=== PATIENT | female | born 1935 | race Caucasian/White ===

== ENCOUNTER 2016-05-14 12:47 | Inpatient (IN) | payer MEDICARE, OTHER ==
[2016-05-14 13:37] LABS: Hematocrit 38.5 % (36.0-47.0); Mean Platelet Volume 6.6 fL (7.4-10.4); Red Blood Cell (RBC) Count 4.01 mill/uL (4.20-5.40); White Blood Cell (WBC) Count 17.6 thou/uL (4.8-10.8)
[2016-05-14 13:50] LABS: Troponin I 0.017 ng/mL (< 0.028)
[2016-05-14 14:05] LABS: Band 17 % (5-11); Metamyelocyte 2 % (0-0); Myelocyte 1 % (0-0); Neutrophil 74 % (42-75); Polychromasia SLIGHT = 2-3 cells (100X) (0-2/hpf)
[2016-05-14] MEDS ORDERED: Albuterol Sulfate 2.5 mg/0.5 ml Neb ONE (14:05)
[2016-05-14] MEDS ORDERED: Nitroglycerin 2% Ointment 1 INCH/1 GM Packet ONE (14:37)
[2016-05-14 15:06] LABS: ALT (SGPT) 16 U/L (0-55); AST (SGOT) 10 U/L (5-34); Alkaline Phosphatase 119 U/L (40-150); Anion Gap 14 mmol/L (10-20); BUN (Urea Nitrogen) 20 mg/dL (9.8-20.1); Bilirubin, Total 0.8 mg/dL (0.2-1.2); Calc. Creatinine Clearance 0 mL/min (70-130); Calcium 8.8 mg/dL (7.8-10.44); Carbon Dioxide 20 mmol/L (23-31); Chloride 107 mmol/L (98-107); Estimated GFR-MDRD 47; Globulin 5.1 g/dL (2.4-3.5); Protein, Total 8.2 g/dL (5.8-8.1)
--- NOTE | 2016-05-14 15:45 | RAD ---
PORTABLE CHEST: Date: 05/14/16 PROVIDED CLINICAL HISTORY: Dyspnea. FINDINGS: Comparison with 02/28/16. Evaluation is limited by patient body habitus. Cardiac silhouette remains enlarged. Prominence of pu lmonary vasculature is suggested. Evaluation of left lung base is suboptimal. There is no evidence f or pneumothorax. IMPRESSION: Limited study with findings suggesting congestive failure. POS: [facility]
--- NOTE | 2016-05-14 16:07 | ERRECORD ---
[facility] EMERGENCY RECORD HPI SHORTNESS OF BREATH (14:14 SROB) CHIEF COMPLAINT: Patient presents for evaluation of shortness of breath. HISTORIAN: History provided by patient. LOCATION: No localizing symptoms. QUALITY: Symptoms described as tightness, Symptoms described as wheezing, Described as similar to previous episodes. SEVERITY: Maximum severity of symptoms severe, Currently symptoms are severe. TIME COURSE: Gradual onset of symptoms, 3, days priror to arrival. ASSOCIATED WITH: Associated with cough, Associated with wheezing. RELIEVED BY: Patient's condition relieved by inhaler use. RISK FACTORS: Coronary artery disease risk factors. ROS (14:15 SROB) CONSTITUTIONAL: Negative constitutional review of systems. EYES: Negative eye review of systems. ENT: Negative ears, nose, throat review of systems. CARDIOVASCULAR: Negative cardiovascular review of systems. RESPIRATORY: Historian reports shortness of breath, reports wheezing. GI: Negative gastrointestinal review of systems. GENITOURINARY FEMALE: Negative genitourinary review of systems. NEUROLOGIC: Negative neurologic review of systems. PSYCHIATRIC: Negative psychiatric review of systems. PAST MEDICAL HISTORY (13:36 LHAL) MEDICAL HISTORY: Flu vaccine up to date, Past medical history includes genitourinary history, Past medical history includes neurological disease, "SLIGHT DEMENTIA", Past medical history includes history of obesity, Past medical history includes pulmonary disease, Notes: OSTEOPOROSIS, OVERACTIVE BLADDER, GERD, history of hyperlipidemia, Past medical history includes history of hypertension. FEMALE SURGICAL HISTORY: Surgical history of hysterectomy, Surgical history of hysterectomy. PSYCHIATRIC HISTORY: Notes: DEMENTIA, Notes: DEMENTIA. SOCIAL HISTORY: Patient denies alcohol use, Patient denies drug use, Patient has no smoking history, Patient denies alcohol use, Patient denies drug use, Patient has no smoking history. KNOWN ALLERGIES No Known Allergies (Unconfirmed) No Known Drug Allergies CURRENT MEDICATIONS Miralax: POWDER IN PACKET (EA) : Strength - 17 gram : ORAL Patient Dose: 17 g Oral once a day. (14:16 LHAL) UTI-Stat: LIQUID (ML) : Strength - 3,875 mg/30 mL : ORAL &a-1R&a+25V*p+0X*[id number]*c152B*c15G*c2P*p-0X&a-25V&a+1RName: Leida Collins : F80 MedRec: [id number] AcctNum: [id number] Prepared: SatMay 14, 2016 16:11 by Interface Page 1 of 4 pMD [facility] EMERGENCY RECORD Patient Dose: ONE radha Oral once a day. (14:17 LHAL) Colace: CAPSULE : Strength - 100 mg : ORAL Patient Dose: 100 mg Oral 2 times a day. (14:18 LHAL) naproxen: TABLET : Strength - 500 mg : ORAL Patient Dose: 500 mg Oral 2 times a day. (14:18 LHAL) ranitidine HCl: CAPSULE : Strength - 150 mg : ORAL Patient Dose: 150 mg Oral 2 times a day. (14:19 LHAL) guaiFENesin: LIQUID (ML) : Strength - 100 mg/5 mL : ORAL Patient Dose: 5 mL Oral every 6 hours PRN.Last Taken: 05/14/16. (14:20 LHAL) loperamide: CAPSULE : Strength - 2 mg : ORAL Patient Dose: 2 mg Oral once a day. (14:20 LHAL) Claritin: TABLET : Strength - 10 mg : ORAL Patient Dose: 10 mg Oral once a day. (14:21 LHAL) Milk of Magnesia: SUSPENSION, ORAL (FINAL DOSE FORM) : Strength - 400 mg/5 mL : ORAL Patient Dose: 30 mL Oral As Needed. (14:21 LHAL) Afrin (oxymetazoline): SPRAY, NON-AEROSOL (ML) : Strength - 0.05 % : NASAL Patient Dose: 1 spray(s) Nares Both As Needed. (14:22 LHAL) Tylenol: TABLET : Strength - 325 mg : ORAL Patient Dose: 1-2 tab(s) Oral every 6 hours PRN. (14:23 LHAL) VITAL SIGNS VITAL SIGNS: BP: 165/75 (Sitting), Pulse: 117 (Regular), Resp: 28 (Moderate Distress), Pain: 0, O2 sat: 88 on Room Air, Time: 05/14/2016 13:01. (13:01 LHAL) Temp: 97.5 (Tympanic), Time: 05/14/2016 13:15. (13:15 LHAL) BP: 103/50 (Sitting), Pulse: 114 (Regular), Resp: 23 (Mild Distress), Pain: 0, O2 sat: 93 on 3L Oxygen, Time: 05/14/2016 12:45. (12:45 LHAL) BP: 117/78 (Sitting), Pulse: 115 (Regular), Resp: 24 (Non-Labored), Pain: 0, O2 sat: 93 on 3L Oxygen, Time: 05/14/2016 14:30. (14:30 LHAL) BP: 99/57 (Sitting), Pulse: 115 (Regular), Resp: 18 (Non-Labored), Pain: 0, O2 sat: 93 on 3L Oxygen, Time: 05/14/2016 15:01. (15:01 LHAL) BP: 97/54 (Sitting), Pulse: 114 (Regular), Resp: 18 (Non-Labored), Pain: 0, O2 sat: 94 on 3L Oxygen, Time: 05/14/2016 15:31. (15:31 LHAL) BP: 98/64, Pulse: 115, Resp: 20, Temp: 87.0, Pain: 0, O2 sat: 94 on 3L, Time: 05/14/2016 15:49. (15:49 LHAL) PHYSICAL EXAM (14:15 SROB) CONSTITUTIONAL: Vital Signs Reviewed, Patient afebrile, Pulse, tachycardic, Blood pressure, &a-1R&a+25V*p+0X*[id number]*c152B*c15G*c2P*p-0X&a-25V&a+1RName: Leida Collins : 6 F80 MedRec: [id number] AcctNum: [id number] Prepared: SatMay 14, 2016 16:11 by Interface Page 2 of 4 pMD [facility] EMERGENCY RECORD hypertensive, Respiratory rate, increased, Abnormal Pulse Oximetry, 88 on room air. HEAD: Head exam normal. EYES: Eye exam normal. ENT: ENT exam normal. NECK: Neck exam normal. RESPIRATORY CHEST: Wheezing present, Rales present, to bilateral lower lobes, Breath sounds diminished. ABDOMEN FEMALE: Abdominal exam normal. BACK: Back exam normal. UPPER EXTREMITY: Upper extremity exam normal. LOWER EXTREMITY: Lower extremity exam normal, Reese's negative. NEURO: Neuro exam normal. SKIN: Skin exam normal. PSYCHIATRIC: Psychiatric exam normal. EKG INTERPRETATION (14:16 SROB) 12 LEAD EKG INTERPRETATION: 12 lead EKG interpreted by Emergency Department Physician at time of study, 12 lead EKG shows, sinus tachycardia, Rate (beats per minute): 106, T waves, non-specific t wave change, Clinical impression:, No ischemic changes. RADIOLOGYINTERPRETATION (14:19 SROB) CHEST: Films of the chest show, moderate congestive heart failure. MEDICATION ADMINISTRATION SUMMARY Drug Name: DuoNeb, Dose Ordered: 3 mL, Route: Intranasal, Status: Canceled, Time: 13:16 05/14/2016, Drug Name: Nitrol, Dose Ordered: 1 inch, Route: Transdermal, Status: Given, Time: 14:38 05/14/2016, Drug Name: Proventil solution for nebulization, Dose Ordered: 2.5 mg, Route: Nebulize, Status: Given, Time: 14:03 05/14/2016, Drug Name: DuoNeb, Dose Ordered: 3 mg, Route: Nebulize, Status: Given, Time: 13:17 05/14/2016, Detailed record available in Medication Service section. DOCTOR NOTES (15:58 SROB) RE-EVALUATION: The patient's condition has improved, Wheezing much better but still has rales and is short fo breath. VIK@ 94. PATIENT STATUS: Patient has improved since arrival to emergency department. D/W: Discussed this case with Dr. Olivares, the primary care physician, Will admit. PATIENT PLAN: The patient will be admitted to the hospital. DATA REVIEWED: Lab data reviewed, Xray data reviewed, Reviewed &a-1R&a+25V*p+0X*[id number]*c152B*c15G*c2P*p-0X&a-25V&a+1RName: Leida Collins : F80 MedRec: [id number] AcctNum: [id number] Prepared: SatMay 14, 2016 16:11 by Interface Page 3 of 4 pMD [facility] EMERGENCY RECORD EKG, Discussed with consultants. PROBLEM LIST No recorded problems DIAGNOSIS (15:58 SROB) FINAL: PRIMARY: ACUTE BRONCHOSPASM, ADDITIONAL: CHF. PRESCRIPTION No recorded prescriptions DISPOSITION PATIENT: Disposition Type: Admit, Disposition: [facility], Disposition Transport: Stretcher, Condition: Fair. (15:58 SROB) Patient left the department. (16:05 [facility]) Forrest: LHAL=ROSEANN Gómez, Dulce SROB=MD Cristhian, Thierry &a-1R&a+25V*p+0X*d4019R*c152B*c15G*c2P*p-0X&a-25V&a+1RName: Leida Collins : F80 MedRec: [id number] AcctNum: [id number] Prepared: [facility] May 14, 2016 16:11 by Interface Page 4 of 4 pMD MTDD
--- NOTE | 2016-05-14 16:13 | PICIS ---
[facility] EMERGENCY RECORD TRIAGE (SatMay 14, 2016 13:03 LHAL) TRIAGE NOTES: SOB X FEW DAYS WITH COUGH, CONGESTION, NO FEVER. (SatMay 14, 2016 13:03 LHAL) PATIENT: NAME: Leiad Collins, AGE: 80, GENDER: female, : Sat1935, TIME OF GREET: SatMay 14, 2016 12:48, PREFERRED LANGUAGE: Somali, ETHNICITY: Not or , ECODE BILLING MAP: [facility], SSN: [id number], Zip Code: [address], KG WEIGHT: 97.52, PHONE: , , , PERSON ID: [id number], PCP: Bill KELSEY LUKE. (SatMay 14, 2016 13:03 LHAL) COMPLAINT: COUGH,CONGESTION. (SatMay 14, 2016 13:03 LHAL) ADMISSION: URGENCY: 2 Emergent, ADMISSION SOURCE: [facility], AMBULANCE: [facility], TRANSPORT: AMBULANCE - [facility], BED: ER -02. (SatMay 14, 2016 13:03 LHAL) ASSESSMENT: Assessment: RASH X ONE MONTH, POSS SCABIES, Symptoms began BEFORE THANKSGIVING. (13:36 LHAL) PAIN: No complaint of pain, No aggravating factors, No relieving factors. (13:36 LHAL) IMMUNIZATIONS: Flu vaccine not up to date, Tetanus immunization up to date, Pneumococcal vaccine not up to date, Notes: USING RUBBING ALCOHOL. (13:36 LHAL) SIRS SCORING: Heart Rate 55-109 (0), Temp range 96.8-101.1 (0), respiratory rate 12-24 (0), Mental Status altered: no (0), Infection or Suspected Infection: No. (13:36 LHAL) TRIAGE SCREENING: Patient denies suicidal ideation, Patient denies presence of domestic violence. (13:36 LHAL) LMP: LMP: Menopause. (13:36 LHAL) PROVIDERS: TRIAGE NURSE: Dulce Gómez RN. (SatMay 14, 2016 13:03 LHAL) VITAL SIGNS: BP 165/75, (Sitting), Pulse 117, (Regular), Resp 28, (Moderate Distress), Pain 0, O2 Sat 88, on Room Air, Time 05/14/2016 13:01. (13:01 LHAL) PREVIOUS VISIT ALLERGIES: No Known Drug Allergies. (SatMay 14, 2016 13:03 LHAL) No Known Drug Allergies. (13:36 LHAL) KNOWN ALLERGIES No Known Allergies (Unconfirmed) No Known Drug Allergies CURRENT MEDICATIONS Miralax: POWDER IN PACKET (EA) : Strength - 17 gram : ORAL Patient Dose: 17 g Oral once a day. (14:16 LHAL) UTI-Stat: LIQUID (ML) : Strength - 3,875 mg/30 mL : ORAL Patient Dose: ONE radha Oral once a day. (14:17 LHAL) Colace: CAPSULE : Strength - 100 mg : ORAL Patient Dose: 100 mg Oral 2 times a day. (14:18 LHAL) &a-1R&a+25V*p+0X*t7294F*c152B*c15G*c2P*p-0X&a-25V&a+1RName: Leida Collins : F80 MedRec: [id number] AcctNum: [id number] Prepared: SatMay 14, 2016 16:17 by Interface Page 1 of 12 D [facility] EMERGENCY RECORD naproxen: TABLET : Strength - 500 mg : ORAL Patient Dose: 500 mg Oral 2 times a day. (14:18 LHAL) ranitidine HCl: CAPSULE : Strength - 150 mg : ORAL Patient Dose: 150 mg Oral 2 times a day. (14:19 LHAL) guaiFENesin: LIQUID (ML) : Strength - 100 mg/5 mL : ORAL Patient Dose: 5 mL Oral every 6 hours PRN.Last Taken: 05/14/16. (14:20 LHAL) loperamide: CAPSULE : Strength - 2 mg : ORAL Patient Dose: 2 mg Oral once a day. (14:20 LHAL) Claritin: TABLET : Strength - 10 mg : ORAL Patient Dose: 10 mg Oral once a day. (14:21 LHAL) Milk of Magnesia: SUSPENSION, ORAL (FINAL DOSE FORM) : Strength - 400 mg/5 mL : ORAL Patient Dose: 30 mL Oral As Needed. (14:21 LHAL) Afrin (oxymetazoline): SPRAY, NON-AEROSOL (ML) : Strength - 0.05 % : NASAL Patient Dose: 1 spray(s) Nares Both As Needed. (14:22 LHAL) Tylenol: TABLET : Strength - 325 mg : ORAL Patient Dose: 1-2 tab(s) Oral every 6 hours PRN. (14:23 LHAL) VITAL SIGNS VITAL SIGNS: BP: 165/75 (Sitting), Pulse: 117 (Regular), Resp: 28 (Moderate Distress), Pain: 0, O2 sat: 88 on Room Air, Time: 05/14/2016 13:01. (13:01 LHAL) Temp: 97.5 (Tympanic), Time: 05/14/2016 13:15. (13:15 LHAL) BP: 103/50 (Sitting), Pulse: 114 (Regular), Resp: 23 (Mild Distress), Pain: 0, O2 sat: 93 on 3L Oxygen, Time: 05/14/2016 12:45. (12:45 LHAL) BP: 117/78 (Sitting), Pulse: 115 (Regular), Resp: 24 (Non-Labored), Pain: 0, O2 sat: 93 on 3L Oxygen, Time: 05/14/2016 14:30. (14:30 LHAL) BP: 99/57 (Sitting), Pulse: 115 (Regular), Resp: 18 (Non-Labored), Pain: 0, O2 sat: 93 on 3L Oxygen, Time: 05/14/2016 15:01. (15:01 LHAL) BP: 97/54 (Sitting), Pulse: 114 (Regular), Resp: 18 (Non-Labored), Pain: 0, O2 sat: 94 on 3L Oxygen, Time: 05/14/2016 15:31. (15:31 LHAL) BP: 98/64, Pulse: 115, Resp: 20, Temp: 87.0, Pain: 0, O2 sat: 94 on 3L, Time: 05/14/2016 15:49. (15:49 LHAL) NURSING ASSESSMENT: FALL RISK (15:43 LHAL) FALL RISK: Fall risk assessment findings include: no history of falls (0), No bed rest greater than 2 days (0), No use of level of consciousness altering agents with mentation or cognitive changes (0), No change in blood pressure (0), No sensory deficits (0), Impaired mobility (3), No neurologic diagnosis (0), No elimination problems (0), No confusion (0), Total score 3. &a-1R&a+25V*p+0X*t2430V*c152B*c15G*c2P*p-0X&a-25V&a+1RName: Leida Collins : F80 MedRec: [id number] AcctNum: [id number] Prepared: SatMay 14, 2016 16:17 by Interface Page 2 of 12 pMD [facility] EMERGENCY RECORD NURSING ASSESSMENT: RESPIRATORY /CHEST CONSTITUTIONAL: Patient arrives, via stretcher, via [facility], Unsteady gait, Lift to cart, History obtained from, Emergency Medical [facility], Patient appears, anxious, in respiratory distress, obese, Patient cooperative, Patient alert, Oriented to person, place and time, Skin warm, Skin dry, Skin normal in color, Mucous membranes pink, Mucous membranes moist, Patient is well-groomed, Patient complains of SOB, COUGH X FEW DAYS. (13:03 LHAL) PAIN: No sudden onset of pain, Patient rates pain as 0 out of 10. (13:03 LHAL) RESPIRATORY/CHEST: Lungs auscultated, Breath sounds diminished, to bilateral lower lobes, Respiratory assessment findings include respiratory effort, tachypneic, dyspneic, Respirations regular, Converses, in short phrases, Neck and chest exam findings include trachea midline, Chest expansion equal, Chest movement symmetrical, Associated with cough, non-productive, no associated fever, no associated fume exposure. (13:03 LHAL) ENT: no associated fever, no associated headache, no associated decrease in oral intake. (13:03 LHAL) NOTES: Notes: DENIES CP, NO SWELLING TO LEGS. (14:45 LHAL) SAFETY: Side rails up, Cart/Stretcher in lowest position, Family at bedside, Call light within reach, Hospital ID band on. (13:03 LHAL) NURSING ASSESSMENT: SKIN (15:50 LHAL) SKIN: Skin assessment findings include skin warm, Skin dry, Skin normal in color, Notes: SLIGHT BROWNISH DISCOLORATION TO BILAT LOWER LEGS, NO EDEMA, SLIGHT SCRAPE RIGHT LOWER LEG, MINOR SCRAPE TO OUTER RIGHT LABIA, POSSIBLE FROM DIAPER RUBBING, NO BLEEDING. ADVANCED DIRECTIVES (15:40 LHAL) ADVANCED DIRECTIVE: FRANKO LARA, Patient has a power of insurance attorney, Power of insurance attorney document scanned into chart., Name: FRANKO LARA, Effective Date of advance directives is: 06-28-09. NURSING PROCEDURE: ADMISSION (15:35 LHAL) ADMISSION: Patient admitted to a telemetry unit, room number 145, Report called to, ROSEANN CALLAHAN, Provided opportunity to answer questions, Admission orders received and completed, Bed assigned at 1527, Report called at 1535, Patient Admited at. 1545, Acuity level non-urgent, Transported via cart/stretcher, Accompanied by registered nurse, Transported with oxygen. BELONGINGS: Belongings and valuables with patient upon arrival to the Emergency Department include:. &a-1R&a+25V*p+0X*j5597Z*c152B*c15G*c2P*p-0X&a-25V&a+1RName: Leida Collins : F80 MedRec: [id number] AcctNum: [id number] Prepared: SatMay 14, 2016 16:17 by Interface Page 3 of 12 [facility] EMERGENCY RECORD NURSING PROCEDURE: BEDSIDE RADIOLOGY (13:41 LHAL) PATIENT IDENTIFIER: Patient actively involved in identification process, Patient's identity verified by patient stating name, Patient's identity verified by patient stating date, Patient's identity verified by hospital ID bracelet, Patient's identity verified by family member. BEDSIDE RADIOLOGY: Portable chest x-ray performed. SAFETY: Side rails up, Cart/Stretcher in lowest position, Family at bedside, Call light within reach, Hospital ID band on. NURSING PROCEDURE: INSTRUMENT TECH (13:03 LHAL) PATIENT IDENTIFIER: Patient actively involved in identification process, Patient's identity verified by patient stating name, Patient's identity verified by patient stating date, Patient's identity verified by hospital ID bracelet. INSTRUMENT TECH: Cardiac monitoring indicated for SOB, TACHYCARDIA, Patient placed on statement services representative, Heart rate: 117, showing sinus tachycardia, with no ST segment changes, Strip posted on chart, Patient placed on non-invasive blood pressure monitor, with disposable blood pressure cuff applied, Patient placed on continuous pulse oximetry, Adult/pediatric oxisensor applied, Oxygen saturation 88%. FOLLOW-UP: After procedure, alarms set and on, After procedure, patient tolerating monitoring. SAFETY: Side rails up, Cart/Stretcher in lowest position, Call light within reach, Hospital ID band on. NURSING PROCEDURE: IV PATIENT IDENITIFIER: Patient actively involved in identification process, Patient's identity verified by patient stating name, Patient's identity verified by patient stating date, Patient's identity verified by hospital ID bracelet. (13:10 LHAL) IV SITE 1: IV therapy indicated for medication administration, IV established, to the left forearm, using a 20 gauge catheter, in one attempt, IV site prepped with CHLOROPREP, Saline lock established, Flushed with normal saline (mls): 10CC, Labs drawn at time of placement, labeled in the presence of the patient and sent to lab, Blood cultures drawn at time of placement, labeled in the presence of the patient and sent to lab, Notes: FIRST SET BC DRAWN. (13:10 LHAL) FOLLOW-UP SITE 1: Notes: CONTINUED UPON ADMISSION. (15:39 LHAL) SAFETY: Side rails up, Cart/Stretcher in lowest position, Call light within reach, Hospital ID band on. (13:10 LHAL) NURSING PROCEDURE: NURSE NOTES NURSES NOTES: Patient is improving, Patient in no apparent distress, Patient resting quietly, Patient is awaiting results, Notes: FEELING BETTER, DECREASED COUGH, NON LABORED RESP, A&OX3, SKIN PINK W/D. (14:52 LHAL) &a-1R&a+25V*p+0X*n3223T*c152B*c15G*c2P*p-0X&a-25V&a+1RName: Leida Collins : F80 MedRec: [id number] AcctNum: [id number] Prepared: SatMay 14, 2016 16:17 by Interface Page 4 of 12 pMD [facility] EMERGENCY RECORD Patient re-evaluated by physician. (15:13 LHAL) Notes: CONSULT DR KELSEY. (15:17 LHAL) Notes: PT WILL BE AD[facility]ITT[facility]. (15:22 LHAL) Notes: ADMITTED, STABLE, NON LABORED RESP, DYSPNEIC AT TIMES, WHEEZING, GOOD AIR MOVEMENT, NO PAIN. (15:49 LHAL) VITAL SIGNS: BP: 98, / 64, Pulse: 115, Resp: 20, Temp: 87.0, Pain: 0, O2 sat: 94, on: 3L. (15:49 LHAL) NURSING PROCEDURE: OXYGEN THERAPY (13:03 LHAL) PATIENT IDENTIFIER: Patient actively involved in identification process, Patient's identity verified by patient stating name, Patient's identity verified by patient stating date, Patient's identity verified by hospital ID bracelet. OXYGEN THERAPY: Oxygen therapy indicated for wheezing, Oxygen therapy indicated for desaturation, Oxygen therapy indicated for respiratory distress, Oxygen saturation 88%, by adult/pediatric oxisensor, multiple pulse oximetry reading, 3L oxygen given, via nasal cannula. FOLLOW-UP: After procedure, oxygen saturation 96%. SAFETY: Side rails up, Cart/Stretcher in lowest position, Call light within reach, Hospital ID band on. NURSING PROCEDURE: RESPIRATORY INTERVENTIONS PATIENT IDENTIFIER: Patient actively involved in identification process, Patient's identity verified by patient stating name, Patient's identity verified by patient stating date, Patient's identity verified by hospital ID bracelet. (13:16 LHAL) Patient actively involved in identification process, Patient's identity verified by patient stating name, Patient's identity verified by patient stating date, Patient's identity verified by hospital ID bracelet, Patient's identity verified by family member. (13:16 LHAL) RESPIRATORY INTERVENTIONS: Respiratory interventions indicated for desaturation, Respiratory interventions indicated for respiratory distress, Respiratory interventions indicated for wheezing, Pre-intervention breath sounds diminished, to bilateral lower lobes, Pre-intervention breath sounds with wheezing, to bilateral upper lobes, Pre-intervention oxygen saturation 95%, by adult/pediatric oxisensor, multiple pulse oximetry reading, Patient given ALBUTEROL with ATROVENT, Single dose nebulizer, Dose: UNIT DOSE. (13:16 LHAL) Respiratory interventions indicated for desaturation, Respiratory interventions indicated for wheezing, Pre-intervention breath sounds with wheezing, Pre-intervention oxygen saturation 95%, Patient given ALBUTEROL, 2, Single dose nebulizer. (13:16 LHAL) FOLLOW-UP: After procedure, oxygen saturation 94%, on 3L, After procedure, breath sounds with rhonchi, After procedure, breath sounds with wheezing, Notes: INCREASED BS, SCATTERED WHEEZES, RHONCHI. (14:51 LHAL) SAFETY: Side rails up, Cart/Stretcher in lowest position, Call &a-1R&a+25V*p+0X*c4255I*c152B*c15G*c2P*p-0X&a-25V&a+1RName: Leida Collins : F80 MedRec: [id number] AcctNum: [id number] Prepared: SatMay 14, 2016 16:17 by Interface Page 5 of 12 pMD [facility] EMERGENCY RECORD light within reach, Hospital ID band on. (13:16 LHAL) ORDER DETAILS Order Name: B type Natriuretic Peptide, Status: Active, Time: 14:20 05/14/2016, User: JELLY, - Ordered for: MD Morrow Sam, - Entered by: MD Morrow Sam - SatMay 14, 2016 14:20, - Quantity: 1, Order Name: Cardiac Profile w/CKMB & Troponin - I, Status: Active, Time: 13:15 05/14/2016, User: JELLY, - Ordered for: MD Morrow Sam, - Entered by: MD Morrow Sam - SatMay 14, 2016 13:15, - Quantity: 1, Order Name: CBC with Differential, Status: Active, Time: 13:15 05/14/2016, User: JELLY, - Ordered for: MD Morrow Sam, - Entered by: MD Morrow Sam - SatMay 14, 2016 13:15, - Quantity: 1, Order Name: Comprehensive Metabolic Panel, Status: Active, Time: 13:15 05/14/2016, User: JELLY, - Ordered for: MD Morrow Sam, - Entered by: MD Morrow Sam - [facility] May 14, 2016 13:15, - Quantity: 1, Order Name: Culture, Blood, Status: Active, Time: 13:20 05/14/2016, User: LHCATHY, - Ordered for: MD Morrow Sam, - Entered by: ROSEANN Gómez, [facility] May 14, 2016 13:20, - Quantity: 1, Order Name: EKG 12 Lead in Emergency Room, Status: Active, Time: 13:15 05/14/2016, User: JELLY, - Ordered for: MD Morrow Sam, - Entered by: MD Morrow Sam - [facility] May 14, 2016 13:15, - Quantity: 1, Order Name: ERRT * Smal Vol Neb Initial Trmt, Status: Active, Time: 13:15 05/14/2016, User: JELLY, - Ordered for: MD Morrow Sam, - Entered by: MD Morrow Sam - [facility] May 14, 2016 13:15, - Quantity: 1, Order Name: ERRT Oxygen Usage ER, Status: Active, Time: 13:41 05/14/2016, User: AWILDA, - Ordered for: MD Morrow Sam, - Entered by: ROSEANN Gómez, [facility] May 14, 2016 13:41, - Quantity: 1, Order Name: SALINE LOCK, Status: Done, Time: 13:20 05/14/2016, User: AWILDA, - Ordered for: MD Morrow Sam, - Entered by: MD Morrow Sam - [facility] May 14, 2016 13:15, - Quantity: 1, Order Name: XR Chest 1 View Portable, Status: Active, Time: 13:15 05/14/2016, User: JELLY, &a-1R&a+25V*p+0X*x0754T*c152B*c15G*c2P*p-0X&a-25V&a+1RName: Leida Collins : F80 MedRec: [id number] AcctNum: [id number] Prepared: SatMay 14, 2016 16:17 by Interface Page 6 of 12 D [facility] EMERGENCY RECORD - Ordered for: MD Morrow Sam, - Entered by: MD Morrow Sam - SatMay 14, 2016 13:15, - Quantity: 1. MEDICATION ADMINISTRATION SUMMARY Drug Name: DuoNeb, Dose Ordered: 3 mL, Route: Intranasal, Status: Canceled, Time: 13:16 05/14/2016, Drug Name: Nitrol, Dose Ordered: 1 inch, Route: Transdermal, Status: Given, Time: 14:38 05/14/2016, Drug Name: Proventil solution for nebulization, Dose Ordered: 2.5 mg, Route: Nebulize, Status: Given, Time: 14:03 05/14/2016, Drug Name: DuoNeb, Dose Ordered: 3 mg, Route: Nebulize, Status: Given, Time: 13:17 05/14/2016, Detailed record available in Medication Service section. MEDICATION SERVICE DuoNeb: Order: DuoNeb (ipratropium bromide/albuterol sulfate) - Dose: 3 mg : Nebulize Schedule: Now Ordered by: Thierry Morrow MD Entered by: Dulce Gómez RN SatMay 14, 2016 13:17 Documented as given by: Dulce Gómez RN SatMay 14, 2016 13:17 Patient, Medication, Dose, Route and Time verified prior to administration. Amount given: 3 MG, Site: Medication administered via Hand-held nebulizer, With oxygen, Correct patient, time, route, dose and medication confirmed prior to administration, Patient advised of actions and side-effects prior to administration, Allergies confirmed and medications reviewed prior to administration, Administered by Mima GÓMEZ RN, Patient in position of comfort, Side rails up, Cart in lowest position, Family at bedside. : Follow Up : No signs or symptoms of allergic reaction noted, Decreased respiratory rate, Decreased respiratory effort, Breath sounds improved. (13:45 LHAL) Nitrol: Order: Nitrol (nitroglycerin) - Dose: 1 inch : Transdermal Schedule: Now Ordered by: Thierry Morrow MD Entered by: Thierry Morrow MD SatMay 14, 2016 14:31 Documented as given by: Dulce Gómez RN SatMay 14, 2016 14:38 Patient, Medication, Dose, Route and Time verified prior to administration. Amount given: ONE INCH, Skin cleansed prior to administration, Shaving required prior to administration, Correct patient, time, route, dose and medication confirmed prior to administration, Patient advised of actions and side-effects prior to administration, Allergies confirmed and medications reviewed prior to administration, Administered by Mima GÓMEZ RN, Advised not to ambulate without assistance, Patient in position of comfort, Side rails up, Cart in lowest position. &a-1R&a+25V*p+0X*y3406C*c152B*c15G*c2P*p-0X&a-25V&a+1RName: Leida Collins : F80 MedRec: [id number] AcctNum: [id number] Prepared: SatMay 14, 2016 16:17 by Interface Page 7 of 12 pMD [facility] EMERGENCY RECORD : Follow Up : No signs or symptoms of allergic reaction noted, Decreased respiratory effort. (15:40 LHAL) Proventil solution for nebulization: Order: Proventil solution for nebulization (albuterol sulfate) - Dose: 2.5 mg : Nebulize Schedule: Now Ordered by: Thierry Morrow MD Entered by: Thierry Morrow MD SatMay 14, 2016 14:00 Documented as given by: Dulce Gómez RN SatMay 14, 2016 14:03 Patient, Medication, Dose, Route and Time verified prior to administration. Amount given: 2.5 MG, Site: Medication administered via Hand-held nebulizer, With oxygen, Correct patient, time, route, dose and medication confirmed prior to administration, Patient advised of actions and side-effects prior to administration, Allergies confirmed and medications reviewed prior to administration, Administered by Mima GÓMEZ RN, Patient in position of comfort, Side rails up, Cart in lowest position, Family at bedside. : Follow Up : No signs or symptoms of allergic reaction noted, Decreased respiratory rate, Decreased respiratory effort, Breath sounds improved. (14:50 LHAL) (CANCELED) DuoNeb: Order: DuoNeb (ipratropium bromide/albuterol sulfate) - Dose: 3 mL : Intranasal Schedule: Now Ordered by: Thierry Morrow MD Entered by: Thierry Morrow MD SatMay 14, 2016 13:13 Canceled by: Dulce Gómez RN. SatMay 14, 2016 13:16 Cancel reason: WRONG ORDER. HPI SHORTNESS OF BREATH (14:14 SROB) CHIEF COMPLAINT: Patient presents for evaluation of shortness of breath. HISTORIAN: History provided by patient. LOCATION: No localizing symptoms. QUALITY: Symptoms described as tightness, Symptoms described as wheezing, Described as similar to previous episodes. SEVERITY: Maximum severity of symptoms severe, Currently symptoms are severe. TIME COURSE: Gradual onset of symptoms, 3, days priror to arrival. ASSOCIATED WITH: Associated with cough, Associated with wheezing. RELIEVED BY: Patient's condition relieved by inhaler use. RISK FACTORS: Coronary artery disease risk factors. ROS (14:15 SROB) CONSTITUTIONAL: Negative constitutional review of systems. EYES: Negative eye review of systems. ENT: Negative ears, nose, throat review of systems. CARDIOVASCULAR: Negative cardiovascular review of systems. RESPIRATORY: Historian reports shortness of breath, reports wheezing. GI: Negative gastrointestinal review of systems. &a-1R&a+25V*p+0X*q3006N*c152B*c15G*c2P*p-0X&a-25V&a+1RName: Leida Collins : F80 MedRec: [id number] AcctNum: [id number] Prepared: SatMay 14, 2016 16:17 by Interface Page 8 of 12 pMD [facility] EMERGENCY RECORD GENITOURINARY FEMALE: Negative genitourinary review of systems. NEUROLOGIC: Negative neurologic review of systems. PSYCHIATRIC: Negative psychiatric review of systems. PAST MEDICAL HISTORY (13:36 LHAL) MEDICAL HISTORY: Flu vaccine up to date, Past medical history includes genitourinary history, Past medical history includes neurological disease, "SLIGHT DEMENTIA", Past medical history includes history of obesity, Past medical history includes pulmonary disease, Notes: OSTEOPOROSIS, OVERACTIVE BLADDER, GERD, history of hyperlipidemia, Past medical history includes history of hypertension. FEMALE SURGICAL HISTORY: Surgical history of hysterectomy, Surgical history of hysterectomy. PSYCHIATRIC HISTORY: Notes: DEMENTIA, Notes: DEMENTIA. SOCIAL HISTORY: Patient denies alcohol use, Patient denies drug use, Patient has no smoking history, Patient denies alcohol use, Patient denies drug use, Patient has no smoking history. PHYSICAL EXAM (14:15 SROB) CONSTITUTIONAL: Vital Signs Reviewed, Patient afebrile, Pulse, tachycardic, Blood pressure, hypertensive, Respiratory rate, increased, Abnormal Pulse Oximetry, 88 on room air. HEAD: Head exam normal. EYES: Eye exam normal. ENT: ENT exam normal. NECK: Neck exam normal. RESPIRATORY CHEST: Wheezing present, Rales present, to bilateral lower lobes, Breath sounds diminished. ABDOMEN FEMALE: Abdominal exam normal. BACK: Back exam normal. UPPER EXTREMITY: Upper extremity exam normal. LOWER EXTREMITY: Lower extremity exam normal, Reese's negative. NEURO: Neuro exam normal. SKIN: Skin exam normal. PSYCHIATRIC: Psychiatric exam normal. LAB INTERPRETATION (15:28 SROB) INTERPRETATION: I reviewed the lab results, All labs normal except as noted below, Glucose high, BNP minimally high, and WBC high. EVENTS TRANSFER: Triage to Emergency Emergency Room -02. (SatMay 14, 2016 13:03 LHAL) Removed from Emergency Emergency Room -02. (16:05 LHAL) RADIOLOGYINTERPRETATION (14:19 SROB) &a-1R&a+25V*p+0X*h9580M*c152B*c15G*c2P*p-0X&a-25V&a+1RName: Leida Collins : F80 MedRec: [id number] AcctNum: [id number] Prepared: SatMay 14, 2016 16:17 by Interface Page 9 of 12 pMD [facility] EMERGENCY RECORD CHEST: Films of the chest show, moderate congestive heart failure. EKG INTERPRETATION (14:16 SROB) 12 LEAD EKG INTERPRETATION: 12 lead EKG interpreted by Emergency Department Physician at time of study, 12 lead EKG shows, sinus tachycardia, Rate (beats per minute): 106, T waves, non-specific t wave change, Clinical impression:, No ischemic changes. DOCTOR NOTES (15:58 SROB) RE-EVALUATION: The patient's condition has improved, Wheezing much better but still has rales and is short fo breath. VIK@ 94. PATIENT STATUS: Patient has improved since arrival to emergency department. D/W: Discussed this case with Dr. Kelsey, the primary care physician, Will admit. PATIENT PLAN: The patient will be admitted to the hospital. DATA REVIEWED: Lab data reviewed, Xray data reviewed, Reviewed EKG, Discussed with consultants. PROBLEM LIST No recorded problems DIAGNOSIS (15:58 SROB) FINAL: PRIMARY: ACUTE BRONCHOSPASM, ADDITIONAL: CHF. DISPOSITION PATIENT: Disposition Type: Admit, Disposition: [facility], Disposition Transport: Stretcher, Condition: Fair. (15:58 SROB) Patient left the department. (16:05 LHAL) PRESCRIPTION No recorded prescriptions IMAGING *EKG: Image captured from scanner. (14:36 LHAL) MONITOR STRIPS: Image captured from scanner. (14:56 LHAL) SENIOR CARE NOTES: Image captured from scanner. (14:57 LHAL) Page 2 added. Image captured from scanner. (14:57 LHAL) Page 3 added. Image captured from scanner. (14:57 LHAL) Page 4 added. Image captured from scanner. (14:57 LHAL) Page 5 added. Image captured from scanner. (14:57 LHAL) Page 6 added. Image captured from scanner. (14:57 LHAL) Page 7 added. Image captured from scanner. (14:58 LHAL) Page 8 added. Image captured from scanner. (14:58 LHAL) Page 9 added. Image captured from scanner. (14:58 LHAL) Page 10 added. Image captured from scanner. (14:58 LHAL) &a-1R&a+25V*p+0X*g0266I*c152B*c15G*c2P*p-0X&a-25V&a+1RName: Leida Collins : [id number] MedRec: [id number] AcctNum: [id number] Prepared: SatMay 14, 2016 16:17 by Interface Page 10 of 12 D [facility] EMERGENCY RECORD Page 11 added. Image captured from scanner. (14:58 LHAL) Page 12 added. Image captured from scanner. (14:58 LHAL) Page 13 added. Image captured from scanner. (14:58 LHAL) Page 14 added. Image captured from scanner. (14:59 LHAL) Page 15 added. Image captured from scanner. (14:59 LHAL) ADMISSION ORDERS: Image captured from scanner. (15:31 LHAL) *SUPPLY CHARGE SHEET: Image captured from scanner. (15:44 LHAL) ADMIN DIGITAL SIGNATURE: ROSEANN Gómez, Dulce. (15:51 LHAL) MD Cristhian, [facility]. (16:00 SROB) RESULTS LABORATORY: Cardiac Profile w/CKMB & TropI Collection DT: SatMay 14, 2016 13:27, CKMB 1.7 ng/mL, Range (0-6.6), Troponin I 0.017 ng/mL, Range (< 0.028), Reference Range , 0.00 - 0.028 ng/mL Negative 0.029 - 0.29 ng/mL , Indeterminate Greater or Equal to 0.3 ng/mL Strongly suggests PR , . (13:56 SROB) CBC with Differential Collection DT: SatMay 14, 2016 13:27, *White Blood Cell (WBC) Count 17.6 - H thou/uL, Range (4.8-10.8), *Red Blood Cell (RBC) Count 4.01 - L mill/uL, Range (4.20-5.40), *Hemoglobin 11.9 - L g/dL, Range (12.0-16.0), Hematocrit 38.5 %, Range (36.0-47.0), Mean Corpuscular Volume 95.9 fl, Range (81.0-99.0), Mean Corpuscular Hemoglobin 29.6 pg, Range (27.0-31.0), *Mean Corpuscular HGB CONC 30.9 - L g/dL, Range (32.0-36.0), *RBC Distribution Width 14.8 - H %, Range (11.5-14.5), Platelet Count 274 thou/uL, Range (130-400), *Mean Platelet Volume 6.6 - L fL, Range (7.4-10.4). (13:56 SROB) CBC with Differential Collection DT: SatMay 14, 2016 13:27, *White Blood Cell (WBC) Count 17.6 - H thou/uL, Range (4.8-10.8), *Red Blood Cell (RBC) Count 4.01 - L mill/uL, Range (4.20-5.40), *Hemoglobin 11.9 - L g/dL, Range (12.0-16.0), Hematocrit 38.5 %, Range (36.0-47.0), Mean Corpuscular Volume 95.9 fl, Range (81.0-99.0), Mean Corpuscular Hemoglobin 29.6 pg, Range (27.0-31.0), *Mean Corpuscular HGB CONC 30.9 - L g/dL, Range (32.0-36.0), *RBC Distribution Width 14.8 - H %, Range (11.5-14.5), Platelet Count 274 thou/uL, Range (130-400), *Mean Platelet Volume 6.6 - L fL, Range (7.4-10.4), &a-1R&a+25V*p+0X*i7187R*c152B*c15G*c2P*p-0X&a-25V&a+1RName: Leida Collins : F80 MedRec: [id number] AcctNum: [id number] Prepared: SatMay 14, 2016 16:17 by Interface Page 11 of 12 pMD [facility] EM[facility] RECORD Neutrophil 74 %, Range (42-75), *Band 17 - H %, Range (5-11), *Lymphocytes 2 - L %, Range (21-51), Monocytes 4 %, Range (0-10), *Metamyelocyte 2 - H %, Range (0-0), *Myelocyte 1 - H %, Range (0-0), Polychromasia SLIGHT = 2-3 cells (100X), Range (0-2/hpf). (14:18 SROB) Comprehensive Metabolic Panel Collection DT: SatMay 14, 2016 13:27, Sodium 137 mmol/L, Range (136-145), Potassium 4.0 mmol/L, Range (3.5-5.1), Chloride 107 mmol/L, Range (98-107), *Carbon Dioxide 20 - L mmol/L, Range (23-31), Anion Gap 14 mmol/L, Range (10-20), BUN (Urea Nitrogen) 20 mg/dL, Range (9.8-20.1), *Creatinine 1.12 - H mg/dL, Range (0.6-1.1), Estimated GFR-MDRD 47 , Reference Range for Estimated GFR: Greater than 90, mL/min/1.73 m2 NOTE: The MDRD equation has not been validated for use, with the elderly (over 70 years of age), women, patients with, serious comorbid condition or persons with extremes of body size, muscle, mass, or nutritional status. , Calcium 8.8 mg/dL, Range (7.8-10.44), Bilirubin, Total 0.8 mg/dL, Range (0.2-1.2), *Protein, Total 8.2 - H g/dL, Range (5.8-8.1), NOTE: Plasma values are generally 0.3 to 0.5 g/dL higher than serum values, due to the presence of fibrinogen. , *Albumin 3.1 - L g/dL, Range (3.4-4.8), *Globulin 5.1 - H g/dL, Range (2.4-3.5), *Alb/Glob Ratio 0.6 - L g/dL, Range (1.2-2.2), Alkaline Phosphatase 119 U/L, Range (40-150), AST (SGOT) 10 U/L, Range (5-34), ALT (SGPT) 16 U/L, Range (0-55). (15:13 SROB) B type Natriuretic Peptide Collection DT: SatMay 14, 2016 14:25, *B type Natriuretic Peptide 153.5 - H pg/mL, Range (0-100). (15:13 SROB) Forrest: LHAL=ROSEANN Gómez, Dulce SROB=MD Cristhian, Thierry &a-1R&a+25V*p+0X*[id number]*c152B*c15G*c2P*p-0X&a-25V&a+1RName: Leida Collins : [id number] MedRec: [id number] AcctNum: [id number] Prepared: SatMay 14, 2016 16:17 by Interface Page 12 of 12 pMD MTDD
[2016-05-14] MEDS ORDERED: Acetaminophen 325 MG TAB PO PRN ×2 (17:41→17:45)
[2016-05-14] MEDS ORDERED: Milk Of Magnesia 30 ML UDCUP PO PRN (17:45)
[2016-05-14] MEDS: Albuterol Sulfate 2.5 mg/3 ml Neb NEB SCH ×2 (18:18→22:03)
[2016-05-14] MEDS: Docusate 100 MG CAP PO SCH (20:21)
[2016-05-14] MEDS: Naproxen 500 MG TAB PO SCH (20:21)
[2016-05-14] MEDS: Famotidine 20 MG TAB PO SCH (20:21)
--- NOTE | 2016-05-15 01:03 | HP ---
DATE OF ADMISSION: 05/14/2016 HISTORY OF PRESENT ILLNESS: The patient is a very pleasant, mildly confused white female living in a [facility] years secondary to confusion who presents with several day history of increa sing cough, wheezing, shortness of breath, onset of hypoxemia today. She has had no fever or chills . She was seen in the emergency room because of an O2 sat of 89%. Chest x-ray showing some mild co ngestion, but diffuse wheezing and white count of 17,000. It was felt that most likely she had a re currence of her healthcare associated bronchial pneumonia that she had last year, which required hos pitalization. She has done fairly well since that time, but has not responded to nebulizer treatmen ts in the [facility] and therefore it is felt to require admission to the hospital for IV antibiot ics, oxygen therapy and close monitoring. She is not to be resuscitated secondary to advanced direc tive. PAST MEDICAL HISTORY: As mentioned above is remarkable for recurrent urinary tract infections, whic h have continued at the [facility], but have been responsive to oral antibiotics, longstanding his tory of hypertension, history of renal cell mass years ago, which has not caused her any symptoms an d have not been evaluated further family's request and the above-mentioned history of bronchospasm a nd bronchitis requiring admission. PAST SURGICAL HISTORY: Positive for an open reduction internal fixation of left hip fracture. ALLERGIES: She has no known allergies. CURRENT MEDICATIONS: At this time include hand held nebulizers as mentioned above as needed, Milk o f Magnesia as needed, Claritin as needed, Naprosyn twice daily as needed, Tylenol as needed. SOCIAL HISTORY: She is not on any medication for her hypertension, has had well controlled hyperten lennox with diet in the hospital. REVIEW OF SYSTEMS: Completely negative, but the patient is a very poor historian secondary to demen tia. PHYSICAL EXAMINATION: GENERAL: Shows her to be an elderly white female who is awake and alert, oriented x3, but in some m ild respiratory distress, appeared to be flushed in the face, but is able to answer questions. VITAL SIGNS: Showed to have blood pressure 127/151, respirations 24, O2 sats 95% on 3 liters, tempe rature is 97, pulse 117. HEENT: Pupils are equal, round, and react to light and accommodation. Sclerae are anicteric. Conj unctivae pale. Oral mucous membranes are well hydrated. NECK: Supple. There are no nodes or masses. JVP is not elevated. LUNGS: Shows diffuse inspiratory and expiratory wheezes with good breath sounds. CARDIAC: Regular rhythm. ABDOMEN: Soft and nontender, but obese. SKIN/EXTREMITIES: Show 2+ edema, nonpitting of the lower extremities, no erythema or warmth. NEUROLOGIC: Shows no focal findings. LABORATORY AND X-RAY FINDINGS: Shows her to have white count 17,600, hematocrit 38, hemoglobin 11. Sodium is 137, potassium 4.0, chloride 107, bicarbonate 20, BUN 20, creatinine 1.12, glucose 171, c alcium 8.8, total bilirubin 0.8, AST 10, ALT 16, alkaline phosphatase 119. BNP 153. Cardiac enzyme s normal. Chest x-ray is read as mild vascular congestion, no focal infiltrates. ASSESSMENT AND PLAN: The patient is an 80-year-old white female with a history of progressive demen tia and previous history of bronchitis and bronchospasm, who presents with increased dyspnea, hypoxi a, respiratory distress for the last several days despite treatment with DuoNeb at the [facility]. She does not have an infiltrate, but does have a leukocytosis and does have symptoms of sepsis syn drome with tachycardia, leukocytosis, hypoxemia, therefore we admitted to the hospital for IV antibi otics with Levaquin, blood cultures, lactate level and continue handheld nebulizers with DuoNeb as w ell as IV Solu-Medrol. She was monitored closely and will be treated aggressively, but is not to be resuscitated at her request.
[2016-05-15] MEDS: Enoxaparin Sodium 30 MG/0.3 ML SYRINGE SC SCH (05:30)
[2016-05-15 05:34] LABS: Band 9 % (5-11); Hematocrit 38.5 % (36.0-47.0); Mean Platelet Volume 7.1 fL (7.4-10.4); Neutrophil 87 % (42-75); Red Blood Cell (RBC) Count 3.98 mill/uL (4.20-5.40); White Blood Cell (WBC) Count 14.7 thou/uL (4.8-10.8)
[2016-05-15 05:41] LABS: Anion Gap 16 mmol/L (10-20); BUN (Urea Nitrogen) 23 mg/dL (9.8-20.1); Calc. Creatinine Clearance 56 mL/min (70-130); Calcium 8.9 mg/dL (7.8-10.44); Carbon Dioxide 18 mmol/L (23-31); Chloride 106 mmol/L (98-107); Estimated GFR-MDRD 42
[2016-05-15] MEDS ORDERED: Dextrose 5% in Water 1,000 ML IV PRN (06:44)
[2016-05-15] MEDS ORDERED: Dextrose 50% Abboject 50 ML SYRINGE SLOW IVP PRN (06:44)
[2016-05-15] MEDS ORDERED: HumaLOG 300 UNITS/3 ML VIAL SC PRN (06:44)
--- NOTE | 2016-05-15 06:58 | PRG ---
DATE OF SERVICE: 05/15/2016 SUBJECTIVE: The patient feels better with decreased dyspnea and wheezing, although did have some di fficulty through the night, was able to rest later in the night. She is stating that she feels well at this time and has a good appetite and is ready for breakfast. OBJECTIVE: Shows her white count decreased from 17.6 to 14.7 hematocrit 38, hemoglobin 11. Sodium is 136, potassium 4.3, chloride 106, bicarbonate is 18, BUN is 23, creatinine 1.24, glucose is eleva essence at 253. VITAL SIGNS: Blood pressure 140/66, temperature 96.9, pulse 108, respirations 24, O2 sats 97% on 3 liters. LUNGS: Show increased breath sounds with no rales or rhonchi and only a few expiratory wheezes. CARDIAC: Shows regular rhythm. EKG is pending as is repeat chest x-ray. ASSESSMENT: 1. Resolving bronchitis with bronchospasm on steroids and IV antibiotics and bronchodilators. 2. Type 2 diabetes, initially diet controlled, but exacerbated with methylprednisolone. 3. Mild stable dementia. PLAN: Start Accu-Cheks and sliding scale. Continue to monitor Accu-Cheks. Continue Levaquin 500 p .o. daily, may need to decrease dose and will repeat base met profile to determine GFR tomorrow. Co ntinue prednisolone IV another day and then possibly switch to oral steroid.
[2016-05-15] MEDS: Loratadine 10 MG TAB PO PRN (09:32)
[2016-05-15] MEDS: Naproxen 500 MG TAB PO SCH ×2 (09:32→20:22)
[2016-05-15] MEDS: Docusate 100 MG CAP PO SCH ×2 (09:32→20:22)
[2016-05-15] MEDS: Famotidine 20 MG TAB PO SCH ×2 (09:32→20:22)
[2016-05-15] MEDS: Ondansetron HCl/PF 4 MG/2 ML Vial IVP PRN (09:33)
[2016-05-15] MEDS: HumaLOG 300 UNITS/3 ML VIAL SC PRN ×2 (12:45→17:10)
--- NOTE | 2016-05-15 16:08 | RAD ---
CHEST ONE VIEW 05/15/16 HISTORY: Hypoxemia. COMPARISON: 05/14/16. FINDINGS: The cardiac silhouette is magnified by projection. Pulmonary vasculature is slightly engorged and ac centuated by shallow inspiration. Mediastinum is midline. There is no lobar consolidation or evidenc e of pneumothorax. awake overnight monitor leads overlie the chest. IMPRESSION: Pulmonary vascular congestion. POS: [facility]
[2016-05-16] MEDS: Enoxaparin Sodium 30 MG/0.3 ML SYRINGE SC SCH (05:10)
[2016-05-16] MEDS: HumaLOG 300 UNITS/3 ML VIAL SC PRN (05:11)
--- NOTE | 2016-05-16 08:31 | PRG ---
DATE OF SERVICE: 05/16/2016 SUBJECTIVE: The patient feels well. No complaints. Appears to be breathing easier, slept well thr ough the night. No shortness of breath. OBJECTIVE: Blood pressure 146/68, O2 sats 94% on 3 liters, respirations 24, pulse 108, afebrile. L ungs show increased breath sounds with persistent, but decreased diffuse expiratory wheezes, no insp iratory wheezes, no rhonchi. Cardiac examination displays regular rhythm. Abdomen is soft and nont jonny. Skin and extremities showed no edema. Blood cultures are negative. Accu-Cheks are elevated to 167 to 203 on the IV steroids. White count was improved yesterday to 14,700. ASSESSMENT: 1. Resolving bronchitis with bronchospasm, decreased wheezing, decreasing white count, improved vit al signs, but with persistent hypoxemia. 2. Mild pulmonary vascular congestion on chest x-ray. We will repeat. 3. Glucose intolerance, exacerbated by IV steroids. Continue on sliding scale and wean off IV ster oids and monitor. PLAN: Change IV Solu-Medrol to oral prednisone 40 daily. Continue Accu-Cheks and sliding scale. R epeat CBC and chest x-ray in the a.m. Up in the chair today.
[2016-05-16] MEDS: Famotidine 20 MG TAB PO SCH ×2 (09:01→20:56)
[2016-05-16] MEDS: predniSONE 20 MG TAB PO SCH (09:01)
[2016-05-16] MEDS: Naproxen 500 MG TAB PO SCH ×2 (09:01→20:56)
[2016-05-16] MEDS: Docusate 100 MG CAP PO SCH ×2 (09:02→20:56)
[2016-05-17] MEDS: Enoxaparin Sodium 30 MG/0.3 ML SYRINGE SC SCH (05:41)
[2016-05-17 05:55] LABS: #Lymphocytes 1.1 thou/uL (1.20-3.40); #Neutrophils 11.3 thou/uL (1.40-6.50); %Basophils 0.4 % (0.0-1.0); %Lymphocytes 8.4 % (21.0-51.0); %Monocytes 7.1 % (0.0-10.0); Hematocrit 40.2 % (36.0-47.0); Red Blood Cell (RBC) Count 4.15 mill/uL (4.20-5.40); White Blood Cell (WBC) Count 13.5 thou/uL (4.8-10.8)
--- NOTE | 2016-05-17 06:53 | PRG ---
DATE OF SERVICE: 05/17/2016 SUBJECTIVE: The patient lying in bed. Rested well last night according to nurses. She states she is feeling better. No dyspnea or cough, but did not get up and do therapy yesterday. OBJECTIVE: Shows her pulse is 98, respirations 22, sats 96% on 2-1/2 liters, blood pressure 138/65. Lungs show decreased breath sounds in the bases, but only rare expiratory wheeze. Cardiac examina tion shows regular rhythm. Skin and extremities show no edema. Chest x-ray done yesterday did show persistent pulmonary congestion, mild. White count has improved to 13,500, but still slightly elevated, hematocrit 40, hemoglobin 12. Accu-Cheks improved to 146 t o 186 on small sliding scale. ASSESSMENT: 1. Persistent but improving bronchospasm secondary most likely to bronchitis with improving white c ount on antibiotics. 2. Mild pulmonary vascular congestion, possibly contributing to bronchospasm, persistent on chest x -ray. PLAN: Lasix 40 mg IV push daily x3 days, repeat basic metabolic profile today, continue Levaquin 50 0 orally daily, prednisone 40 p.o. orally daily and handheld nebulizers, DuoNebs.
[2016-05-17 06:57] LABS: Anion Gap 16 mmol/L (10-20); BUN (Urea Nitrogen) 51 mg/dL (9.8-20.1); Calc. Creatinine Clearance 45 mL/min (70-130); Calcium 9.5 mg/dL (7.8-10.44); Carbon Dioxide 24 mmol/L (23-31); Chloride 107 mmol/L (98-107); Estimated GFR-MDRD 32
[2016-05-17] MEDS: predniSONE 20 MG TAB PO SCH (07:42)
[2016-05-17] MEDS: Docusate 100 MG CAP PO SCH ×2 (08:45→20:38)
[2016-05-17] MEDS: Furosemide 40 MG/4 ML VIAL SLOW IVP SCH (08:47)
[2016-05-17] MEDS: Famotidine 20 MG TAB PO SCH ×2 (08:47→20:39)
[2016-05-17] MEDS: Naproxen 500 MG TAB PO SCH ×3 (08:47→20:39)
--- NOTE | 2016-05-17 09:03 | RAD ---
EXAM: ONE VIEW CHEST: COMPARISON: 05/15/16. HISTORY: Pulmonary congestion and wheezing. FINDINGS: Stable lucency beneath the left hemidiaphragm likely representing air in the stomach. Enlarged card iac silhouette. The pulmonary vessels and hilum are normal. Persistent hazy opacification of the l eft lung base which may, in part, be due to technique. No pneumothorax. IMPRESSION: No significant interval change. POS: [facility]
[2016-05-17] MEDS: HumaLOG 300 UNITS/3 ML VIAL SC PRN ×2 (12:24→16:34)
[2016-05-18] MEDS: Enoxaparin Sodium 30 MG/0.3 ML SYRINGE SC SCH (05:24)
[2016-05-18 06:04] LABS: Anion Gap 15 mmol/L (10-20); BUN (Urea Nitrogen) 55 mg/dL (9.8-20.1); Calc. Creatinine Clearance 47 mL/min (70-130); Calcium 8.9 mg/dL (7.8-10.44); Carbon Dioxide 27 mmol/L (23-31); Chloride 103 mmol/L (98-107); Estimated GFR-MDRD 34
[2016-05-18] MEDS: predniSONE 20 MG TAB PO SCH (07:36)
[2016-05-18] MEDS: Naproxen 500 MG TAB PO SCH ×2 (09:10→20:21)
[2016-05-18] MEDS: Furosemide 40 MG/4 ML VIAL SLOW IVP SCH (09:10)
[2016-05-18] MEDS: Famotidine 20 MG TAB PO SCH ×2 (09:10→20:22)
[2016-05-18] MEDS: Docusate 100 MG CAP PO SCH ×2 (09:10→20:22)
[2016-05-18] MEDS: HumaLOG 300 UNITS/3 ML VIAL SC PRN ×3 (11:37→20:20)
--- NOTE | 2016-05-18 17:43 | PRG ---
DATE OF SERVICE: 05/18/2016 SUBJECTIVE: The patient is awake, resting through the night intermittently, not complaining of any shortness breath, chest pain, wheezing or cough, has been eating well. OBJECTIVE: VITAL SIGNS: Pulse is down to 108, respirations 20, O2 sats 98% on 2 liters, blood pressure 115/63. LUNGS: However, appear to be clear, decreased wheezes, rhonchi and rales. CARDIAC: Shows regular rhythm. LABORATORY DATA: Accu-Cheks stable at 140, 174. Sodium 141, potassium 4.2, chloride 103, bicarb 15 , BUN up to 55, BUN 23 two days ago, creatinine is up from 1.12-1.47 two days ago. ASSESSMENT: 1. Resolving bronchospasm, likely due to bronchitis with superimposed congestive heart failure. 2. Acute renal failure most likely due to diuresis, but with improving, congestive heart failure wi th diuresis. 3. Severe deconditioning with no change. The patient is only able to sit in a chair. PLAN: Continue IV Lasix one more day and then stop. Continue to monitor renal function to monitor respiratory distress. Continue up in the chair. Finish course of antibiotics with Levaquin for hos pital acquired bronchitis.
[2016-05-19] MEDS: Enoxaparin Sodium 30 MG/0.3 ML SYRINGE SC SCH (05:20)
[2016-05-19 05:38] LABS: Anion Gap 16 mmol/L (10-20); BUN (Urea Nitrogen) 47 mg/dL (9.8-20.1); Calc. Creatinine Clearance 58 mL/min (70-130); Calcium 8.6 mg/dL (7.8-10.44); Carbon Dioxide 28 mmol/L (23-31); Chloride 99 mmol/L (98-107); Estimated GFR-MDRD 42
[2016-05-19 08:18] LABS: Troponin I Less than 0.010 ng/mL (< 0.028)
[2016-05-19] MEDS: Naproxen 500 MG TAB PO SCH ×2 (08:53→21:21)
[2016-05-19] MEDS: predniSONE 20 MG TAB PO SCH (08:53)
[2016-05-19] MEDS: Famotidine 20 MG TAB PO SCH ×2 (08:54→21:21)
[2016-05-19] MEDS: Docusate 100 MG CAP PO SCH ×2 (08:54→21:21)
[2016-05-19] MEDS: Loratadine 10 MG TAB PO PRN (08:54)
[2016-05-19] MEDS: Furosemide 40 MG/4 ML VIAL SLOW IVP SCH (08:54)
[2016-05-19] MEDS: HumaLOG 300 UNITS/3 ML VIAL SC PRN (11:43)
--- NOTE | 2016-05-19 19:57 | PRG ---
DATE OF SERVICE: 05/19/2016 SUBJECTIVE: The patient feels much better. No shortness of breath at rest. He did sit up in the c hair, but has not been doing therapy. He has no cough or wheezing slept well through the night. OBJECTIVE: VITAL SIGNS: Pulse stable at 102, respirations stable at 22, O2 sats 94% on 2 liters, blood pressur e 149/81. LABORATORY DATA: Shows Accu-Cheks stable 124-184, CK-MB 2.7. Troponin 0.010. BUN is down to 47, c reatinine down to 1.24, potassium 4.3, chloride 99, bicarbonate 28. Sodium 139. ASSESSMENT: Slowly improving bronchospasm, status post bronchitis, mild decompensation, congestive heart failure, improved with Lasix with improved renal function with diuresis. PLAN: Discontinue Lasix in the a.m. Continue Levaquin. Continue on hand inhaled bronchodilators, continue to stress PT to sit up in the chair.
[2016-05-20] MEDS: Ondansetron HCl/PF 4 MG/2 ML Vial IVP PRN (05:37)
[2016-05-20 05:50] LABS: Anion Gap 17 mmol/L (10-20); BUN (Urea Nitrogen) 41 mg/dL (9.8-20.1); Calc. Creatinine Clearance 57 mL/min (70-130); Calcium 8.6 mg/dL (7.8-10.44); Carbon Dioxide 35 mmol/L (23-31); Chloride 92 mmol/L (98-107); Estimated GFR-MDRD 40
[2016-05-20 05:55] LABS: #Basophils 0.1 thou/uL (0.0-0.2); #Lymphocytes 1.9 thou/uL (1.20-3.40); #Monocytes 0.7 thou/uL (0.11-0.59); #Neutrophils 13.1 thou/uL (1.40-6.50); %Basophils 0.4 % (0.0-1.0); %Eosinophils 0.2 % (0.0-10.0); %Lymphocytes 11.9 % (21.0-51.0); %Monocytes 4.2 % (0.0-10.0); Hematocrit 41.2 % (36.0-47.0); Mean Platelet Volume 6.7 fL (7.4-10.4); Red Blood Cell (RBC) Count 4.36 mill/uL (4.20-5.40); White Blood Cell (WBC) Count 15.7 thou/uL (4.8-10.8)
[2016-05-20] MEDS: Enoxaparin Sodium 30 MG/0.3 ML SYRINGE SC SCH (05:59)
[2016-05-20] MEDS: Naproxen 500 MG TAB PO SCH ×2 (09:08→21:26)
[2016-05-20] MEDS: predniSONE 20 MG TAB PO SCH (09:08)
[2016-05-20] MEDS: Famotidine 20 MG TAB PO SCH ×2 (09:09→21:26)
[2016-05-20] MEDS: Docusate 100 MG CAP PO SCH ×2 (09:09→21:27)
--- NOTE | 2016-05-20 15:27 | PRG ---
DATE OF SERVICE: 05/20/2016 SUBJECTIVE: The patient feels well, sitting up in the bed, slept intermittently through the night, and had no respiratory distress and sitting up in the chair. Denies any cough, sputum production, o r chest pain. OBJECTIVE: VITAL SIGNS: Shows her blood pressure is 121/57, respirations are 18, O2 sats 95% on 2 liters, puls e 104, and temperature 96. LUNGS: Showed decreased breath sounds in bases, but no rales or rhonchi. CARDIAC: Shows regular rhythm. SKIN AND EXTREMITIES: Showed no edema. LABORATORY DATA: Sodium 139, potassium 5.2, chloride 92, bicarbonate 35, BUN is 41, creatinine 1.27 , glucose 136. Cardiac enzymes yesterday negative. Troponin 0.010. BNP was normal at 26.5. Accu- Cheks still slightly elevated at 149/84. ASSESSMENT: 1. Resolving bronchitis with bronchospasm, hypoxemia. 2. Mild pulmonary congestion, most likely due to hypoventilation. 3. Stable deconditioning, minimal improvement. PLAN: Decrease prednisone 20 mg daily. Decrease oxygen 1 liter daily. Plan for discharge in the n ext 1-2 days.
[2016-05-21] MEDS: Enoxaparin Sodium 30 MG/0.3 ML SYRINGE SC SCH (05:42)
[2016-05-21 06:04] LABS: Anion Gap 15 mmol/L (10-20); BUN (Urea Nitrogen) 33 mg/dL (9.8-20.1); Calc. Creatinine Clearance 60 mL/min (70-130); Calcium 8.2 mg/dL (7.8-10.44); Carbon Dioxide 29 mmol/L (23-31); Chloride 97 mmol/L (98-107); Estimated GFR-MDRD 43
[2016-05-21] MEDS ORDERED: predniSONE 20 MG TAB PO SCH (08:00)
[2016-05-21] MEDS: Docusate 100 MG CAP PO SCH ×2 (08:58→20:46)
[2016-05-21] MEDS: Famotidine 20 MG TAB PO SCH ×2 (08:58→20:46)
[2016-05-21] MEDS: Naproxen 500 MG TAB PO SCH ×2 (09:08→20:46)
--- NOTE | 2016-05-21 10:36 | PRG ---
DATE OF SERVICE: 05/21/2016 SUBJECTIVE: The patient feels well today, lying in bed resting through the night, still very weak, but has been sitting up in the chair, appears to be close to her baseline, having no cough or shortn ess of breath. OBJECTIVE: Shows her blood pressure is stable at 126/70, O2 sats 94% on 1 liter, respirations 20, p ulse is 104. Lungs show decreased breath sounds in the bases, but no rales, rhonchi or wheezes. Ca rdiac examination shows regular rhythm The abdomen is obese and nontender. Skin and extremities sh owed no edema. ASSESSMENT: Resolving bronchitis and bronchospasm controlled on nebulizer and low dose steroids. N o evidence of congestive heart failure. PLAN: Discontinue oxygen, continue low dose prednisone 10 mg daily, and hand-held nebulizer at the shelter. ADDENDUM: Sodium 137, potassium 4.3, chloride 97, bicarbonate 29, BUN 33, creatinine 1.2. Accu-Olivia ks 148-176 and will therefore discontinue prednisone because of increased sugars and monitor for the need for sliding scale at the shelter.
[2016-05-21] MEDS ORDERED: Simethicone Chewable 80 MG TAB PO PRN (13:54)
[2016-05-21] MEDS: Metoclopramide HCl 10 MG/10 ML UDCUP PO SCH ×2 (15:46→20:47)
[2016-05-22] MEDS: Enoxaparin Sodium 30 MG/0.3 ML SYRINGE SC SCH (05:34)
[2016-05-22 05:48] LABS: #Basophils 0.1 thou/uL (0.0-0.2); #Eosinphils 0.1 thou/uL (0.0-0.7); #Monocytes 0.8 thou/uL (0.11-0.59); #Neutrophils 11.5 thou/uL (1.40-6.50); %Basophils 0.4 % (0.0-1.0); %Eosinophils 0.6 % (0.0-10.0); %Lymphocytes 14.1 % (21.0-51.0); %Monocytes 5.2 % (0.0-10.0); Hematocrit 38.4 % (36.0-47.0); Red Blood Cell (RBC) Count 4.11 mill/uL (4.20-5.40); White Blood Cell (WBC) Count 14.4 thou/uL (4.8-10.8)
[2016-05-22 05:54] LABS: Anion Gap 15 mmol/L (10-20); BUN (Urea Nitrogen) 36 mg/dL (9.8-20.1); Calc. Creatinine Clearance 65 mL/min (70-130); Calcium 8.2 mg/dL (7.8-10.44); Carbon Dioxide 30 mmol/L (23-31); Chloride 96 mmol/L (98-107); Estimated GFR-MDRD 47
[2016-05-22] MEDS: Metoclopramide HCl 10 MG/10 ML UDCUP PO SCH ×4 (07:31→21:12)
--- NOTE | 2016-05-22 08:19 | PRG ---
DATE OF SERVICE: 05/22/2016 SUBJECTIVE: The patient feels well with no complaints. The patient is mildly demented and does not often complain much. The family states that she did rest last night and had minimal cough, decreas ing belching. OBJECTIVE: The patient was seen by speech yesterday and was found to have recurrent cough after eat ing, although appeared to have significant strength in her oropharyngeal muscles, felt may have been due to swallowing air and to belching. Objective shows her blood pressure is 117/60, pulse is 101, respirations 22, O2 sats 94-95% on room air. Lungs are clear. Cardiac examination shows regular rhythm. Abdomen is distended. ASSESSMENT: 1. Recurrent cough, possibly due to aspiration from swallowing air, improved with simethicone and w ith Reglan. 2. Resolved bronchospasm with hand held nebulizer. 3. Stable dementia and deconditioning. PLAN: Up in the chair all day today with all meals and medications in the chair. No symptoms, disc harge to [facility].
[2016-05-22] MEDS: Naproxen 500 MG TAB PO SCH ×2 (08:20→21:12)
[2016-05-22] MEDS: Famotidine 20 MG TAB PO SCH ×2 (08:20→21:12)
[2016-05-22] MEDS: Docusate 100 MG CAP PO SCH ×2 (08:20→21:12)
[2016-05-22 11:35] VITALS: BMI 43.8
[2016-05-23] MEDS: Enoxaparin Sodium 30 MG/0.3 ML SYRINGE SC SCH (05:38)
[2016-05-23] MEDS: Metoclopramide HCl 10 MG/10 ML UDCUP PO SCH ×2 (07:28→11:51)
[2016-05-23 08:47] LABS: #Basophils 0.1 thou/uL (0.0-0.2); #Eosinphils 0.2 thou/uL (0.0-0.7); #Monocytes 0.9 thou/uL (0.11-0.59); #Neutrophils 11.1 thou/uL (1.40-6.50); %Basophils 0.5 % (0.0-1.0); %Eosinophils 1.2 % (0.0-10.0); %Lymphocytes 14.2 % (21.0-51.0); %Monocytes 6.3 % (0.0-10.0); Hematocrit 40.3 % (36.0-47.0); Mean Platelet Volume 6.8 fL (7.4-10.4); White Blood Cell (WBC) Count 14.3 thou/uL (4.8-10.8)
[2016-05-23] MEDS: Docusate 100 MG CAP PO SCH (09:15)
[2016-05-23] MEDS: Naproxen 500 MG TAB PO SCH (09:15)
[2016-05-23] MEDS: Famotidine 20 MG TAB PO SCH (09:15)
[2016-05-23 13:39] VITALS: BP 135/63; TEMP 97
--- NOTE | 2016-05-24 21:04 | DIS ---
DATE OF ADMISSION TO THE HOSPITAL: 05/14/2016 DATE OF DISCHARGE TO HOME: 05/23/2016 FINAL DIAGNOSES: 1. Bronchitis with severe bronchospasm, improved with hand held nebulizer. 2. Severe deconditioning, chronic with minimal improvement. 3. Recurrent difficulty with swallowing secondary to gaseous distention, belching improved with Reg corina and Mylicon. 4. Recurrent urinary tract infection, resolved. 5. Hypertension, stable. 6. Mild dementia, stable. HOSPITAL COURSE: The patient is a very pleasant, minimally confused white female, living in a [facility] home for many years secondary to confusion and decreasing conditioning, failed to maintain ADLs, who developed cough, wheezing, shortness of breath, hypoxemic, 89% in the emergency room with the est x-ray showing mild congestion and white count of 17,000. She had failed treatment with outpatie nt nebulizers and antibiotics and therefore, was admitted to the hospital, started on bronchodilator s, steroids and slowly, but surely improved. She did develop some pulmonary congestion, which was t reated with several days of furosemide. Initially, creatinine increased from 1.12 on admission to 1 .55 after diuresis, but then normalized back to 1.24. Accu-Cheks did increase with steroid therapy, but remained stable when the steroids were discontinued in the range of 128-131. Her white count q uickly improved 17,000 to 14,000, but then remained stable there while she was on steroids and will be monitored at the [facility]. She has been discontinued from her steroids and is not having whe ezing, only requiring nebulizer p.r.n. She is eating well and has finished her full course of antib iotics with Levaquin and is deemed to be stable to be discharged back to the [facility] and she wi ll be seen by myself in 2 days. DISCHARGE MEDICATIONS: On discharge, she will be taking hand held nebulizer q.i.d. p.r.n., new medi cations of Reglan 5 mg before meals and at bedtime, simethicone 80 mg after meals and at bedtime, Zo lenny as needed, Pepcid 20 mg twice daily and Naprosyn as needed. Prognosis is somewhat guarded. The family understands this. She is not to be resuscitated.
== END 2016-05-23 14:25 | DRG 202 ==
LOC: NAV ERS 12:47 → NAV ACUTE 16:37
PROVIDERS: ADMIT Internal Medicine; ATTEND Internal Medicine
DX: J98.01 Acute bronchospasm (principal); N39.0 Urinary tract infection, site not specified; N17.9 Acute kidney failure, unspecified; E11.65 Type 2 diabetes mellitus with hyperglycemia; I50.9 Heart failure, unspecified; I11.0 Hypertensive heart disease with heart failure; F03.90 Unspecified dementia, unspecified severity, without behavioral disturbance, psychotic disturbance, mood disturbance, and anxiety; J40 Bronchitis, not specified as acute or chronic; R13.10 Dysphagia, unspecified; R14.0 Abdominal distension (gaseous); R09.02 Hypoxemia; T38.0X5A Adverse effect of glucocorticoids and synthetic analogues, initial encounter; Z66 Do not resuscitate
CPT/HCPCS: 36415; 36416; 71010; 80048; 80053; 82553; 83880; 84484; 85025; 87040; 93005; 94640; A4216; G8978-GP-CK; G8996-GN-CJ; G8997-GN-CJ; J1650; J1940; J2405; J2920; J7506; J7611; J7620

== ENCOUNTER 2016-05-31 09:39 | Outpatient (CLI) | payer MEDICARE, OTHER ==
[2016-05-31 10:25] LABS: #Eosinphils 0.1 thou/uL (0.0-0.7); #Lymphocytes 2.4 thou/uL (1.20-3.40); #Monocytes 0.6 thou/uL (0.11-0.59); #Neutrophils 2.4 thou/uL (1.40-6.50); %Basophils 0.5 % (0.0-1.0); %Eosinophils 2.4 % (0.0-10.0); %Lymphocytes 43.2 % (21.0-51.0); %Monocytes 11.5 % (0.0-10.0); Hematocrit 36.7 % (36.0-47.0); Mean Platelet Volume 5.6 fL (7.4-10.4); Red Blood Cell (RBC) Count 3.74 mill/uL (4.20-5.40); White Blood Cell (WBC) Count 5.5 thou/uL (4.8-10.8)
[2016-05-31 10:36] LABS: ALT (SGPT) 19 U/L (0-55); AST (SGOT) 9 U/L (5-34); Alkaline Phosphatase 67 U/L (40-150); Anion Gap 8 mmol/L (10-20); BUN (Urea Nitrogen) 10 mg/dL (9.8-20.1); Bilirubin, Total 0.4 mg/dL (0.2-1.2); Calc. Creatinine Clearance 0 mL/min (70-130); Calcium 8.2 mg/dL (7.8-10.44); Carbon Dioxide 30 mmol/L (23-31); Chloride 106 mmol/L (98-107); Estimated GFR-MDRD 70; Globulin 2.9 g/dL (2.4-3.5); LDL Cholesterol, Calculated 115 mg/dL; Protein, Total 5.7 g/dL (5.8-8.1)
== END 2016-05-31 09:40 ==
LOC: NAVSJIPCSP 09:39
PROVIDERS: ATTEND Internal Medicine
DX: Z51.81 Encounter for therapeutic drug level monitoring (principal); Z79.899 Other long term (current) drug therapy
CPT/HCPCS: 80053; 80061; 84443; 85025

== ENCOUNTER 2016-06-25 07:23 | Outpatient (CLI) | payer MEDICARE, OTHER ==
[2016-06-25 11:08] LABS: Calcium 8.2 mg/dL (7.8-10.44); Chloride 105 mmol/L (98-107)
[2016-06-25 11:20] LABS: BUN (Urea Nitrogen) 12 mg/dL (9.8-20.1); Calc. Creatinine Clearance 0 mL/min (70-130); Carbon Dioxide 28 mmol/L (23-31); Estimated GFR-MDRD 76
[2016-06-25 11:52] LABS: Anion Gap 12 mmol/L (10-20)
== END 2016-06-25 07:24 | disposition home or self-care (01) ==
LOC: NAV LABSP 07:23
PROVIDERS: ATTEND Internal Medicine
DX: I10 Essential (primary) hypertension (principal); E78.5 Hyperlipidemia, unspecified
CPT/HCPCS: 36415; 80048

== ENCOUNTER 2016-09-04 07:17 | Outpatient (CLI) | payer MEDICARE, OTHER ==
[2016-09-04 08:05] LABS: #Basophils 0.1 thou/uL (0.0-0.2); #Eosinphils 0.2 thou/uL (0.0-0.7); #Lymphocytes 2.5 thou/uL (1.20-3.40); #Monocytes 0.6 thou/uL (0.11-0.59); #Neutrophils 3.8 thou/uL (1.40-6.50); %Basophils 0.7 % (0.0-1.0); %Eosinophils 2.6 % (0.0-10.0); %Monocytes 8.3 % (0.0-10.0); %Neutrophils 53.4 % (42.0-75.0); Hemoglobin 12.4 g/dL (12.0-16.0); Mean Corpuscular HGB CONC 31.7 g/dL (32.0-36.0); Mean Corpuscular Hemoglobin 29.6 pg (27.0-31.0); Mean Corpuscular Volume 93.5 fl (81.0-99.0); Platelet Count 213 thou/uL (130-400); RBC Distribution Width 14.3 % (11.5-14.5); Red Blood Cell (RBC) Count 4.18 mill/uL (4.20-5.40); White Blood Cell (WBC) Count 7.2 thou/uL (4.8-10.8)
== END 2016-09-04 07:18 | disposition home or self-care (01) ==
LOC: NAV LABSP 07:17
PROVIDERS: ATTEND Internal Medicine
DX: N11.9 Chronic tubulo-interstitial nephritis, unspecified (principal)
CPT/HCPCS: 36415; 85025

== ENCOUNTER 2016-09-05 09:18 | Outpatient (CLI) | payer MEDICARE, OTHER ==
[2016-09-05 10:18] LABS: Anion Gap 15 mmol/L (10-20); BUN (Urea Nitrogen) 19 mg/dL (9.8-20.1); Calc. Creatinine Clearance 0 mL/min (70-130); Calcium 8.6 mg/dL (7.8-10.44); Carbon Dioxide 25 mmol/L (23-31); Chloride 104 mmol/L (98-107); Estimated GFR-MDRD 69; Glucose 95 mg/dL (83-110); Potassium 4.5 mmol/L (3.5-5.1); Sodium 139 mmol/L (136-145)
== END 2016-09-05 09:19 | disposition home or self-care (01) ==
LOC: NAV LABSP 09:18
PROVIDERS: ATTEND Internal Medicine
DX: R05 Cough (principal)
CPT/HCPCS: 36415; 80048

== ENCOUNTER 2016-09-25 07:11 | Outpatient (CLI) | payer MEDICARE, OTHER ==
[2016-09-25 10:10] LABS: Anion Gap 14 mmol/L (10-20); BUN (Urea Nitrogen) 20 mg/dL (9.8-20.1); Calc. Creatinine Clearance 0 mL/min (70-130); Calcium 8.8 mg/dL (7.8-10.44); Carbon Dioxide 25 mmol/L (23-31); Cardiac Risk 4.9 (Less than 4.5); Chloride 104 mmol/L (98-107); Cholesterol 194 mg/dL (< 200 Desired); Estimated GFR-MDRD 69; Glucose 89 mg/dL (83-110); HDL Cholesterol 40 mg/dL (>60 Neg Risk); LDL Cholesterol, Calculated 134 mg/dL; Potassium 3.9 mmol/L (3.5-5.1); Sodium 139 mmol/L (136-145); Triglycerides 99 mg/dL (Less than 150)
== END 2016-09-25 07:12 | disposition home or self-care (01) ==
LOC: NAV LABSP 07:11
PROVIDERS: ATTEND Internal Medicine
DX: E78.5 Hyperlipidemia, unspecified (principal); I10 Essential (primary) hypertension
CPT/HCPCS: 36415; 80048; 80061

== ENCOUNTER 2016-10-11 14:45 | Outpatient (CLI) | payer MEDICARE, OTHER ==
--- NOTE | 2016-10-11 20:26 | ULT ---
RENAL SONOGRAM 10/11/2016 HISTORY: Renal disorder. History of left renal mass. FINDINGS: The kidneys demonstrate a normal sonographic appearance bilaterally without evidence of a renal mass , calculus, or hydronephrosis. The right kidney measures 11 cm x 3.7 cm with the left kidney measur ing 10.8 cm x 4.3 cm. No left renal mass is seen, as noted in the history. The urinary bladder is not imaged on this examination. IMPRESSION: Normal appearing bilateral kidneys. POS: [facility]
== END 2016-10-11 14:46 | disposition home or self-care (01) ==
LOC: NAV ULT 14:45
PROVIDERS: ATTEND Internal Medicine
DX: N28.9 Disorder of kidney and ureter, unspecified (principal)
CPT/HCPCS: 76770

== ENCOUNTER 2016-12-25 10:52 | Outpatient (CLI) | payer MEDICARE, OTHER ==
[2016-12-25 18:54] LABS: Anion Gap 19 mmol/L (10-20); BUN (Urea Nitrogen) 17 mg/dL (9.8-20.1); Calc. Creatinine Clearance 0 mL/min (70-130); Calcium 8.6 mg/dL (7.8-10.44); Carbon Dioxide 23 mmol/L (23-31); Chloride 106 mmol/L (98-107); Estimated GFR-MDRD 66; Glucose 96 mg/dL (83-110); Potassium 4.5 mmol/L (3.5-5.1); Sodium 143 mmol/L (136-145)
== END 2016-12-25 10:53 | disposition home or self-care (01) ==
LOC: NAV LABSP 10:52
PROVIDERS: ATTEND Internal Medicine
DX: E78.5 Hyperlipidemia, unspecified (principal); I10 Essential (primary) hypertension
CPT/HCPCS: 36415; 80048

== ENCOUNTER 2017-07-10 18:39 | Inpatient (IN) | payer MEDICARE, OTHER ==
[2017-07-10] MEDS ORDERED: methylPREDNISolone Sod Succ/PF 125 MG/2 ML VIAL ONE (19:23)
[2017-07-10] MEDS ORDERED: cefTRIAXone\\ROCEPHIN 1 GM VIAL ONE (19:23)
[2017-07-10] MEDS ORDERED: Sodium Chloride 0.9% 0 ML ONE (19:23)
[2017-07-10] MEDS ORDERED: Sodium Chloride 0.9% 500 ML ONE ×2 (19:25→20:45)
[2017-07-10 19:39] LABS: Hemoglobin 13.2 g/dL (12.0-16.0); INR-International Normal Ratio 1.2; Mean Corpuscular HGB CONC 31.1 g/dL (32.0-36.0); Mean Corpuscular Hemoglobin 28.3 pg (27.0-31.0); Mean Corpuscular Volume 91.2 fl (81.0-99.0); Mean Platelet Volume 7.3 fL (7.4-10.4); Platelet Count 226 thou/uL (130-400); Prothrombin Time 15.3 SEC (12.0-14.7); RBC Distribution Width 14.4 % (11.5-14.5); Red Blood Cell (RBC) Count 4.66 mill/uL (4.20-5.40); White Blood Cell (WBC) Count 19.8 thou/uL (4.8-10.8)
[2017-07-10 19:40] LABS: PTT 34.3 SEC (22.9-36.1)
[2017-07-10 19:44] LABS: Band 28 % (5-11); Lymphocytes 10 % (21-51); MDiff Complete? YES; Metamyelocyte 1 % (0-0); Neutrophil 61 % (42-75); PLT Morphology Comment Appears Adequate; RBC Morphology Normal
[2017-07-10 19:48] LABS: ALT (SGPT) 27 U/L (8-55); AST (SGOT) 19 U/L (5-34); Albumin 3.5 g/dL (3.4-4.8); Alkaline Phosphatase 130 U/L (40-150); Anion Gap 16 mmol/L (10-20); BUN (Urea Nitrogen) 20 mg/dL (9.8-20.1); Bilirubin, Total 1.3 mg/dL (0.2-1.2); Calc. Creatinine Clearance 0 mL/min (70-130); Calcium 9.1 mg/dL (7.8-10.44); Carbon Dioxide 21 mmol/L (23-31); Chloride 103 mmol/L (98-107); Estimated GFR-MDRD 53; Globulin 3.9 g/dL (2.4-3.5); Glucose 119 mg/dL (83-110); Potassium 4.1 mmol/L (3.5-5.1); Protein, Total 7.4 g/dL (6.0-8.3); Sodium 136 mmol/L (136-145)
[2017-07-10 20:02] LABS: CKMB 1.4 ng/mL (0-6.6); Troponin I 0.016 ng/mL (< 0.028)
[2017-07-10 20:25] LABS: Bilirubin Moderate (Negative); Blood, Urine Large (Negative); Clarity Cloudy (Clear); Glucose, Urine (Dipstick) Negative (Negative); Leukocyte Small (Negative); Nitrite Positive (Negative); Protein, Urine (Dipstick) > or equal to 300 mg/dL (Neg-Trace); Specific Gravity, Urine 1.025 (1.005-1.030); pH, Urine 5.5 (5.0-9.0)
[2017-07-10 20:34] LABS: Bacteria/HPF 3+ HPF (None Seen); Squamous Epithelial 0-3 HPF (0-3)
--- NOTE | 2017-07-10 20:47 | RAD ---
CHEST ONE VIEW 07/10/17 HISTORY: Emergency exam. Shortness of breath. COMPARISON: Chest one view 05/17/16. FINDINGS: This exam is limited due to technique. No definite confluent air space opacity. Mild left sided pleur al thickening versus layering effusion. Extensive increased mediastinal fat. IMPRESSION: 1. Likely left increased mediastinal fat and pleural thickening versus extrapleural fat. No defi nite effusion or focal air space consolidation. 2. Extensive degenerative disease of both shoulders. POS: [facility]
[2017-07-10] MEDS ORDERED: Acetaminophen 325 MG TAB PO PRN ×2 (21:53→22:14)
[2017-07-10] MEDS ORDERED: Ondansetron HCl/PF 4 MG/2 ML Vial IVP PRN (21:53)
[2017-07-10] MEDS ORDERED: Ondansetron ODT 4 MG TAB SL PRN (21:53)
[2017-07-10] MEDS: Sodium Chloride 0.9% 1,000 ML IV SCH (21:55)
[2017-07-10 21:57] VITALS: BMI 35.9
[2017-07-10] MEDS ORDERED: Loratadine 10 MG TAB PO PRN (22:14)
[2017-07-11] MEDS: Sodium Chloride 0.9% 1,000 ML IV SCH ×3 (01:11→16:25)
[2017-07-11 06:24] LABS: Band 29 % (5-11); Hemoglobin 12.8 g/dL (12.0-16.0); Lymphocytes 5 % (21-51); MDiff Complete? YES; Mean Corpuscular HGB CONC 30.5 g/dL (32.0-36.0); Mean Corpuscular Hemoglobin 28.1 pg (27.0-31.0); Mean Corpuscular Volume 92.2 fl (81.0-99.0); Mean Platelet Volume 7.8 fL (7.4-10.4); Monocytes 1 % (0-10); Neutrophil 65 % (42-75); PLT Morphology Comment Appears Adequate; Platelet Count 228 thou/uL (130-400); RBC Distribution Width 14.7 % (11.5-14.5); Red Blood Cell (RBC) Count 4.55 mill/uL (4.20-5.40); White Blood Cell (WBC) Count 27.3 thou/uL (4.8-10.8)
[2017-07-11 07:18] LABS: Anion Gap 16 mmol/L (10-20); BUN (Urea Nitrogen) 18 mg/dL (9.8-20.1); Calc. Creatinine Clearance 63 mL/min (70-130); Calcium 8.9 mg/dL (7.8-10.44); Carbon Dioxide 24 mmol/L (23-31); Chloride 106 mmol/L (98-107); Estimated GFR-MDRD 52; Glucose 221 mg/dL (83-110); Potassium 4.5 mmol/L (3.5-5.1); Sodium 141 mmol/L (136-145)
[2017-07-11] MEDS: Metoclopramide 10 MG/10 ML UDCUP PO SCH ×4 (07:51→21:06)
[2017-07-11] MEDS: Docusate 100 MG CAP PO SCH ×2 (07:52→21:05)
[2017-07-11] MEDS: Naproxen 500 MG TAB PO SCH ×2 (07:52→21:05)
[2017-07-11] MEDS: Famotidine 20 MG TAB PO SCH ×2 (07:53→21:05)
[2017-07-11] MEDS: Piperacillin/Tazobactam 2.25 GM in Sodium Chloride 0.9% 100 ML IVPB SCH ×3 (08:00→23:38)
[2017-07-11] MEDS: Vancomycin HCl 1 GM in Sodium Chloride 0.9% 250 ML 250 ML IVPB SCH ×2 (08:07→21:06)
[2017-07-11 12:02] LABS: Lactic Acid 1.8 mmol/L (0.5-2.2)
--- NOTE | 2017-07-11 18:30 | PRG ---
MEDICAL PROGRESS NOTE DATE OF SERVICE: 07/11/2017 SUBJECTIVE: The patient feels well today with no cough, nausea, vomiting, abdominal pain or dysuria. OBJECTIVE: VITAL SIGNS: Shows temperature is 96, pulse 95, respirations 18, blood pressure 140/68 and O2 sats 9 7% on room air. LUNGS: Showed decreased breath sounds in the bases, but no rales, rhonchi or wheezes. ABDOMEN: Soft and nontender. SKIN AND EXTREMITIES: Showed no erythema or tenderness. Joints are nontender. LABORATORY DATA: White count, however, is up to 27,300 with 29% bands, hematocrit is 42 and hemoglob in 12. Sodium is 141, potassium is 4.5, chloride 106, bicarbonate 24, BUN 18 and creatinine 1.02. L actate is up to 2.3, is now 1.8 after started on IV fluids. Calcium 8.9. BNP is 141. Blood culture showing no growth. Urine culture apparently was not done in the emergency room. ASSESSMENT AND PLAN: Sepsis secondary most likely urinary tract infection, improving with IV fluids. His lactate has improved to 1.0 thereafter increased to 1.3, but with persistent increased white co unt. No other source appears to be evident and the patient appears not to be toxic, so we will esetfani nue at [facility], but we will start normal saline at 75 an hour. Also, change to broad-spect rum antibiotics with vancomycin and Zosyn. Repeat CBC, base met and lactate in the a.m. as well as a urine culture, although may be not helpful at this time his antibiotics have been given.
--- NOTE | 2017-07-11 21:19 | HP ---
DATE OF ADMISSION: 07/10/2017 CHIEF COMPLAINT: Fever, chills, and weakness. HISTORY OF PRESENT ILLNESS: The patient is an 81-year-old white female well known to myself, living at [facility], who presented with acute onset of chills and weakness. She has been f ound in the past to have recurrent urinary tract infections. She denies any nausea, dysuria, but riley s have moderate dementia. She has had no problems with cough or shortness of breath, but does have a history of bronchitis in the past. She was seen in the emergency room and found to have normal ches t x-ray was down, but was found to have significant urinary tract infection with leukocytosis of 19,8 00. Lactate was normal at 1.7, but she was somewhat altered, did have tachycardia to 103 and was fel t to meet sepsis criteria and was admitted to the hospital. She was given a gram of Rocephin in the emergency room, and urine and blood cultures done. PAST MEDICAL HISTORY: Remarkable for the above-mentioned bronchitis, hyperlipidemia, overactive blad andrey, osteoporosis, obesity, and a mass on the left kidney which resolved without treatment. PAST SURGICAL HISTORY: Positive for hysterectomy. SOCIAL HISTORY: [facility]. Nonsmoker, nondrinker. ALLERGIES: She has no known allergies. CURRENT MEDICATIONS: On admission included MiraLax, Naprosyn, famotidine 20 twice daily, metoclopram reyes 5 mg twice daily. REVIEW OF SYSTEMS: Otherwise, negative other than in the history of present illness, but the patient is a poor historian. PHYSICAL EXAMINATION: GENERAL: The patient is an elderly obese white female, appears in mild distress, tachypneic, but in no respiratory distress, who was oriented x2 and cooperative. VITAL SIGNS: On admission to the emergency room showed her to have a pulse of 114 with a blood press ure 93/53, temperature 98.9, and O2 sat of 93%. HEENT: Pupils are equal, round, and reactive to light and accommodation. Oral mucous membranes are dehydrated. NECK: Supple. There are no nodes or masses. JVPs are not elevated. LUNGS: Appeared to be clear with good breath sounds, no rales or rhonchi. CARDIAC: Shows rapid regular rhythm. No gallops or murmurs. ABDOMEN: Obese and nontender. SKIN/EXTREMITIES: No edema, clubbing, or cyanosis. NEUROLOGIC: Intact. LABORATORY DATA: As mentioned above showed her to have a normal lactate of 1.7. BNP was slightly el evated at 141 and glucose was 200. Sodium was 141, potassium 4.5, chloride 106, bicarbonate 24, BUN 18, creatinine 1.02. White count was 19,800, hematocrit 42, hemoglobin 13, 61% segs, 28% bands. Olivia st x-ray showed no acute infiltrates. Urinalysis; however, did show TNTC white cells, positive nitri te. IMPRESSION AND PLAN: It was felt the patient had sepsis syndrome with tachypnea, tachycardia, hypote nsion and leukocytosis most likely urinary tract infection and we admitted to the hospital and starte d on IV Rocephin started at the emergency room and repeat CBC, base met profile. Await the results o f urine culture. We restarted back on her home medication and will be monitored closely with a repea t lactate in the morning for signs of worsening sepsis.
[2017-07-12] MEDS: Sodium Chloride 0.9% 1,000 ML IV SCH (02:37)
[2017-07-12 06:07] LABS: Lactic Acid 1.3 mmol/L (0.5-2.2)
[2017-07-12 06:11] LABS: Anion Gap 13 mmol/L (10-20); BUN (Urea Nitrogen) 22 mg/dL (9.8-20.1); Calc. Creatinine Clearance 67 mL/min (70-130); Calcium 8.1 mg/dL (7.8-10.44); Carbon Dioxide 20 mmol/L (23-31); Chloride 113 mmol/L (98-107); Estimated GFR-MDRD 56; Glucose 158 mg/dL (83-110); Potassium 3.7 mmol/L (3.5-5.1); Sodium 142 mmol/L (136-145)
[2017-07-12 06:21] LABS: Hemoglobin 11.2 g/dL (12.0-16.0); Mean Corpuscular HGB CONC 31.6 g/dL (32.0-36.0); Mean Corpuscular Hemoglobin 28.8 pg (27.0-31.0); Mean Corpuscular Volume 91.2 fl (81.0-99.0); Mean Platelet Volume 6.9 fL (7.4-10.4); Platelet Count 232 thou/uL (130-400); RBC Distribution Width 14.3 % (11.5-14.5); White Blood Cell (WBC) Count 21.5 thou/uL (4.8-10.8)
[2017-07-12 06:22] LABS: Band 22 % (5-11); Lymphocytes 11 % (21-51); MDiff Complete? YES; Metamyelocyte 1 % (0-0); Monocytes 5 % (0-10); Neutrophil 61 % (42-75); PLT Morphology Comment Appears Adequate; RBC Morphology Normal
[2017-07-12] MEDS: Metoclopramide 10 MG/10 ML UDCUP PO SCH ×4 (08:26→21:21)
[2017-07-12] MEDS: Famotidine 20 MG TAB PO SCH ×2 (08:26→21:21)
[2017-07-12] MEDS: Naproxen 500 MG TAB PO SCH ×2 (08:27→21:21)
[2017-07-12] MEDS: Milk Of Magnesia 30 ML UDCUP PO PRN (08:29)
[2017-07-12] MEDS: Docusate 100 MG CAP PO SCH ×2 (08:29→21:21)
[2017-07-12] MEDS: Vancomycin HCl 1 GM in Sodium Chloride 0.9% 250 ML 250 ML IVPB SCH (08:31)
[2017-07-12] MEDS: Piperacillin/Tazobactam 2.25 GM in Sodium Chloride 0.9% 100 ML IVPB SCH ×3 (08:31→23:58)
--- NOTE | 2017-07-12 17:32 | RAD ---
PORTABLE CHEST ONE VIEW 07/12/17 at 4:25 p.m. HISTORY: CHF exacerbation. FINDINGS/IMPRESSION: Comparison is made with exam of 07/10/17. The heart size is enlarged. No lobar consolidation, pneumothoraces, roscoe pulmonary edema or large ef fusions are seen. There are degenerative changes in the shoulder joints. POS: [facility]
--- NOTE | 2017-07-12 18:33 | PRG ---
DATE OF SERVICE: 07/12/2017 SUBJECTIVE: The patient feels well. No shortness of breath, chest pain, nausea, vomiting, chills or sweats. OBJECTIVE: VITAL SIGNS: O2 sats 92% on room air, temperature is 96, pulse 94, respirations 20, blood pressure 1 86/86. LUNGS: Show decreased breath sounds in the bases. CARDIAC: Showed regular rhythm. ABDOMEN: Obese and nontender. SKIN AND EXTREMITIES: Show no edema, clubbing or cyanosis. LABORATORY DATA: Show white count is down slightly to 21,500, hematocrit 35, hemoglobin 11, lactate down to 1.3. Sodium 142, potassium 3.7, chloride 113, bicarbonate 20, BUN 22, creatinine 0.95. BNP 314. Microbiology shows urine culture showing a gram negative mike, most likely E. coli with sensitiv ities of full identification tomorrow. ASSESSMENT: 1. Resolving sepsis syndrome secondary to Escherichia coli, urinary tract infection. 2. Possible exacerbation of congestive heart failure with IV fluids. 3. Stable dementia. PLAN: Discontinue IV fluids. Continue Zosyn. Discontinue vancomycin. Repeat chest x-ray in a.m.
[2017-07-12 20:39] LABS: Vancomycin, Trough 13.8 ug/mL
[2017-07-13 06:35] LABS: Anion Gap 12 mmol/L (10-20); BUN (Urea Nitrogen) 17 mg/dL (9.8-20.1); Calc. Creatinine Clearance 83 mL/min (70-130); Calcium 8.6 mg/dL (7.8-10.44); Carbon Dioxide 23 mmol/L (23-31); Chloride 109 mmol/L (98-107); Estimated GFR-MDRD 72; Glucose 95 mg/dL (83-110); Potassium 4.3 mmol/L (3.5-5.1); Sodium 140 mmol/L (136-145)
[2017-07-13 06:49] LABS: Band 22 % (5-11); Eosinophils 3 % (0-10); Hemoglobin 11.9 g/dL (12.0-16.0); Lymphocytes 28 % (21-51); MDiff Complete? YES; Mean Corpuscular HGB CONC 31.6 g/dL (32.0-36.0); Mean Corpuscular Hemoglobin 28.9 pg (27.0-31.0); Mean Corpuscular Volume 91.5 fl (81.0-99.0); Mean Platelet Volume 7.4 fL (7.4-10.4); Metamyelocyte 4 % (0-0); Monocytes 1 % (0-10); Neutrophil 42 % (42-75); PLT Morphology Comment Appears Adequate; Platelet Count 225 thou/uL (130-400); RBC Distribution Width 14.7 % (11.5-14.5); RBC Morphology Normal; Red Blood Cell (RBC) Count 4.11 mill/uL (4.20-5.40); White Blood Cell (WBC) Count 12.5 thou/uL (4.8-10.8)
[2017-07-13] MEDS: Metoclopramide 10 MG/10 ML UDCUP PO SCH ×4 (07:39→20:31)
[2017-07-13] MEDS: Milk Of Magnesia 30 ML UDCUP PO PRN (07:40)
[2017-07-13] MEDS: Famotidine 20 MG TAB PO SCH ×2 (08:47→20:31)
[2017-07-13] MEDS: Naproxen 500 MG TAB PO SCH ×2 (08:47→20:30)
[2017-07-13] MEDS: Docusate 100 MG CAP PO SCH ×2 (08:47→20:30)
[2017-07-13] MEDS: Piperacillin/Tazobactam 2.25 GM in Sodium Chloride 0.9% 100 ML IVPB SCH ×2 (08:48→16:38)
--- NOTE | 2017-07-13 08:58 | RAD ---
PORTABLE CHEST 1 VIEW: Date: 07/13/17 Time: 0718 hours HISTORY: CHF. FINDINGS: Comparison made with exam from previous day. The heart size is enlarged. No lobar consolidation, pneumothoraces, roscoe pulmonary edema, or large e ffusions are seen. Degenerative changes in the shoulder joints again seen. IMPRESSION: Stable exam. No acute process. POS: [facility]
[2017-07-13] MEDS ORDERED: cloNIDine 0.1 MG TAB PO PRN (16:31)
--- NOTE | 2017-07-13 16:52 | PRG ---
DATE OF SERVICE: 07/13/2017 SUBJECTIVE: Ms. Collins is resting comfortably. No family at the bedside, discussed with nursing. S he apparently is having some spikes in blood pressure up to 180 systolic. OBJECTIVE: VITAL SIGNS: She is afebrile, heart rate is 87, respirations 19, oxygen saturation 92%, and blood pr essure currently is 143/78. CARDIOVASCULAR SYSTEM: S1, S2 plus. RESPIRATORY SYSTEM: Normal vesicular breath sounds. ABDOMEN: Soft, nontender, obese. Bowel sounds heard in all quadrants. EXTREMITIES: Without cyanosis or clubbing. CENTRAL NERVOUS SYSTEM: Generalized weakness. LABORATORY VALUES: White count is down to 12.5 from 21, H and H is 11.9 and 37.6. Sodium 140, potas sium 4.3, BUN and creatinine is 17 and 0.77. Urinalysis, urine culture is growing E. coli and it is sensitive to meropenem and Maxipime. IMPRESSION: 1. Escherichia coli urinary tract infection with resolving sepsis. 2. Fluctuating blood pressure. 3. Dyslipidemia. 4. Osteoporosis. 5. Dementia. 6. Mass in the left kidney. PLAN: 1. Continue current antibiotic regimen. 2. Clonidine p.r.n. for systolic blood pressure greater than 160. 3. Continue to monitor laboratory values. 4. DVT and stress ulcer prophylaxis. 5. Decubitus precautions. 6. DNR status.
[2017-07-14] MEDS: Piperacillin/Tazobactam 2.25 GM in Sodium Chloride 0.9% 100 ML IVPB SCH ×2 (00:20→09:48)
[2017-07-14 06:00] LABS: #Basophils 0.1 thou/uL (0.0-0.2); #Eosinphils 0.3 thou/uL (0.0-0.7); #Lymphocytes 2.4 thou/uL (1.20-3.40); #Monocytes 0.8 thou/uL (0.11-0.59); #Neutrophils 7.5 thou/uL (1.40-6.50); %Basophils 0.7 % (0.0-1.0); %Eosinophils 2.9 % (0.0-10.0); %Lymphocytes 21.6 % (21.0-51.0); %Monocytes 7.4 % (0.0-10.0); %Neutrophils 67.4 % (42.0-75.0); Hemoglobin 11.6 g/dL (12.0-16.0); Mean Corpuscular HGB CONC 30.4 g/dL (32.0-36.0); Mean Corpuscular Hemoglobin 28.1 pg (27.0-31.0); Mean Corpuscular Volume 92.5 fl (81.0-99.0); Mean Platelet Volume 7.5 fL (7.4-10.4); Platelet Count 213 thou/uL (130-400); RBC Distribution Width 14.5 % (11.5-14.5); Red Blood Cell (RBC) Count 4.15 mill/uL (4.20-5.40); White Blood Cell (WBC) Count 11.1 thou/uL (4.8-10.8)
[2017-07-14 06:04] LABS: Anion Gap 11 mmol/L (10-20); BUN (Urea Nitrogen) 20 mg/dL (9.8-20.1); Calc. Creatinine Clearance 80 mL/min (70-130); Calcium 8.7 mg/dL (7.8-10.44); Carbon Dioxide 24 mmol/L (23-31); Chloride 107 mmol/L (98-107); Estimated GFR-MDRD 69; Glucose 104 mg/dL (83-110); Potassium 4.3 mmol/L (3.5-5.1); Sodium 138 mmol/L (136-145)
[2017-07-14] MEDS: Naproxen 500 MG TAB PO SCH ×2 (09:46→21:28)
[2017-07-14] MEDS: Docusate 100 MG CAP PO SCH ×2 (09:46→21:28)
[2017-07-14] MEDS: Famotidine 20 MG TAB PO SCH ×2 (09:47→21:28)
[2017-07-14] MEDS: Metoclopramide 10 MG/10 ML UDCUP PO SCH ×4 (09:47→21:28)
--- NOTE | 2017-07-14 11:25 | PRG ---
DATE OF SERVICE: 07/14/2017 SUBJECTIVE: Ms. Collins is awake, responsive, denies any complaints, tolerating her p.o. intake. No family at bedside. OBJECTIVE: VITAL SIGNS: She is afebrile, heart rate 88, respirations 20, oxygen saturation 92%, blood pressure was elevated at 197/87. She is on clonidine p.r.n. CARDIOVASCULAR: S1, S2 plus. RESPIRATORY: Normal vesicular breath sounds. ABDOMEN: Soft, obese, nontender, bowel sounds heard in all quadrants. EXTREMITIES: Without cyanosis or clubbing. Trace edema. CENTRAL NERVOUS SYSTEM: Generalized weakness. LABORATORY VALUES: Urine culture is growing E. coli, which is sensitive to Macrobid. Her white coun t is down to 11.1. The plan is to switch her from Zosyn to Macrobid and see how she does. IMPRESSION: 1. Escherichia coli urinary tract infection. 2. Resolving sepsis. 3. Resolving leukocytosis. 4. Dyslipidemia. 5. Osteoporosis. PLAN: 1. Discontinue Zosyn and start Macrobid. 2. Encourage p.o. intake. 3. Monitor blood pressure and adjust medications. 4. DVT and stress ulcer prophylaxis. 5. Decubitus precautions. 6. Dr. Carlos Olivares back tonight.
[2017-07-14] MEDS: Nitrofurantoin Macrocrystal 50 MG CAP PO SCH ×3 (13:14→21:28)
[2017-07-15 05:56] LABS: #Basophils 0.1 thou/uL (0.0-0.2); #Eosinphils 0.4 thou/uL (0.0-0.7); #Lymphocytes 2.8 thou/uL (1.20-3.40); #Monocytes 0.9 thou/uL (0.11-0.59); #Neutrophils 8.2 thou/uL (1.40-6.50); %Basophils 1.1 % (0.0-1.0); %Eosinophils 3.3 % (0.0-10.0); %Lymphocytes 22.6 % (21.0-51.0); %Monocytes 7.1 % (0.0-10.0); %Neutrophils 65.9 % (42.0-75.0); Hemoglobin 12.5 g/dL (12.0-16.0); Mean Corpuscular HGB CONC 30.9 g/dL (32.0-36.0); Mean Corpuscular Hemoglobin 28.5 pg (27.0-31.0); Mean Corpuscular Volume 92.1 fl (81.0-99.0); Mean Platelet Volume 7.5 fL (7.4-10.4); Platelet Count 265 thou/uL (130-400); RBC Distribution Width 14.4 % (11.5-14.5); Red Blood Cell (RBC) Count 4.39 mill/uL (4.20-5.40); White Blood Cell (WBC) Count 12.5 thou/uL (4.8-10.8)
[2017-07-15 06:05] LABS: Anion Gap 12 mmol/L (10-20); BUN (Urea Nitrogen) 22 mg/dL (9.8-20.1); Calc. Creatinine Clearance 70 mL/min (70-130); Carbon Dioxide 25 mmol/L (23-31); Chloride 106 mmol/L (98-107); Estimated GFR-MDRD 59; Glucose 108 mg/dL (83-110); Potassium 4.2 mmol/L (3.5-5.1); Sodium 139 mmol/L (136-145)
[2017-07-15] MEDS ORDERED: Furosemide 40 MG TAB PO PRN (07:44)
[2017-07-15] MEDS ORDERED: Amlodipine 5 MG TAB PO SCH (08:00)
[2017-07-15] MEDS: Docusate 100 MG CAP PO SCH (08:13)
[2017-07-15] MEDS: Nitrofurantoin Macrocrystal 50 MG CAP PO SCH ×3 (08:13→17:12)
[2017-07-15] MEDS: Naproxen 500 MG TAB PO SCH (08:13)
[2017-07-15] MEDS: Metoclopramide 10 MG/10 ML UDCUP PO SCH ×3 (08:14→17:08)
[2017-07-15] MEDS: Famotidine 20 MG TAB PO SCH (08:14)
[2017-07-15] MEDS: Milk Of Magnesia 30 ML UDCUP PO PRN (08:15)
[2017-07-15 17:53] VITALS: BP 134/66; TEMP 97
--- NOTE | 2017-07-16 04:45 | DIS ---
DATE OF ADMISSION: 07/10/2017 DATE OF DISCHARGE: 07/15/2017 FINAL DIAGNOSES: 1. Urinary tract infection secondary to Escherichia coli with subsequent sepsis syndrome with elevat ed lactate, tachycardia, tachypnea. 2. Mild dementia, stable. 3. History of chronic obstructive pulmonary disease with no evidence for recurrence. 4. Transient elevation of blood pressure requiring a transient treatment. We will monitor at the [facility]. HOSPITAL COURSE: The patient is an 81-year-old white female well known to myself with mild dementia, COPD, recurrent urinary tract infection, who presented to the hospital with chills, weakness, found to have leukocytosis of 19,800. Tachycardia at 103. Lactate was normal at 1.7, but she was found to have urinary tract infection. It was felt that she was having sepsis criteria and was admitted to [facility]. She also did have transient hypotension in the emergency room, she was started on IV Ro cephin, but continued to have increased in her white count to 27, 000 and was switched to vancomycin and meropenem with a quick defervescence in her white count in the next several days 21,000 and 12,00 0. She never had another chills or sweats after the first night. Urine culture did return E. coli t hat was sensitive to multiple organisms. Her vancomycin was discontinued and then she was subsequent ly switched to Macrodantin as it was appeared to be sensitive that. Her lactate which initially was normal in the emergency room did increase to 2.3 first day, but then after fluid bolus decreased to 1 .8 and then to 1.3. Prior to discharge, she had her fluid bolus discontinued after 2 days because he r BNP was found to be elevated at 314. She, however, never developed any significant dyspnea or evid ence of congestive heart failure. She did develop transient hypotension and was treated with one dos e of furosemide and amlodipine with no recurrence. She will be discharged home on Macrodantin 50 fou r times daily. Follow with the long term with daily blood pressure checks to see if she need furt her antihypertensive. She will be continued on her prehospitalization medications of Tylenol as need ed, Colace 100 twice daily, famotidine twice daily, Reglan 5 mg before meals and simethicone. She wi ll also have hand held nebulizer with DuoNeb as needed if her blood pressure increases above 160, she will be started on amlodipine and monitor closely.
--- NOTE | 2017-07-22 06:44 | PQF ---
Leida Collins LUKE MD [id number] [facility]-N150 [id number] CLINICAL DOCUMENTATION CLARIFICATION FORM: POST DISCHARGE Addendum to original discharge summary date: 07/15/2017 DATE: 07-20-2017 ATTN: Dr. Olivares Please exercise your independent, professional judgment in responding to the clarification form. Clinical indicators are provided on the bottom of this form for your review The diagnosis of "sepsis syndrome" is a poorly defined diagnosis. In your professional opinion, please clarify if patient had: Please check appropriate box(es): [ ] Escherichia Coli Sepsis due to Escherichia Coli Urinary Tract Infection [ ] Sepsis due to other (please specify) [ ] Sepsis, unspecified [ ] Localized infection without sepsis [ ] Other diagnosis Iplease specify) [ ] Unable to determine In addition, please specify: Present on Admission (POA): [ ] Yes [ ] No [ ] Unable to determine For continuity of documentation, please document condition throughout progress notes and discharge summary. Thank You. CLINICAL INDICATORS - SIGNS / SYMPTOMS / LABS Respiratory rate 26 in ED. Hypotensive 93/53 in ED. Tachycardia 115 in ED. Per H&P: Was felt to meet sepsis criteria and was admitted to the hospital. RISK FACTORS Escherichia Coli urinary tract infection. TREATMENTS: Blood/Urine cultures IV Rocephin in ED. IV Vancomycin and Zosyn. IV Fluids. (This form is maintained as a part of the permanent medical record) 2014 [employer] All Rights Reserved Romy [email or web address] [phone] MTDD
== END 2017-07-15 19:15 | DRG 872 ==
LOC: NAV ERS 18:39 → NAV ACUTE 20:56
PROVIDERS: ADMIT Internal Medicine; ATTEND Internal Medicine
DX: A41.51 Sepsis due to Escherichia coli [E. coli] (principal); I95.9 Hypotension, unspecified; F03.90 Unspecified dementia, unspecified severity, without behavioral disturbance, psychotic disturbance, mood disturbance, and anxiety; J44.9 Chronic obstructive pulmonary disease, unspecified; N39.0 Urinary tract infection, site not specified; Z66 Do not resuscitate; E66.9 Obesity, unspecified; E78.5 Hyperlipidemia, unspecified; N32.81 Overactive bladder; M81.0 Age-related osteoporosis without current pathological fracture; Z68.35 Body mass index [BMI] 35.0-35.9, adult; B96.20 Unspecified Escherichia coli [E. coli] as the cause of diseases classified elsewhere; Z79.899 Other long term (current) drug therapy
CPT/HCPCS: 36415; 36416; 51701; 71045; 80048; 80053; 80202; 81003; 81015; 82553; 83605; 83880; 84484; 85025; 85610; 85730; 87040; 87077; 87086; 87186; 93005; 94640; 94760; 96361; 96374; 96375; A4216; A4353; G8978-GP-CM; G8979-GP-CL; J0696; J2543; J2930; J3370; J7050; J7620

== ENCOUNTER 2019-12-10 09:54 | Emergency (ER) | payer MEDICARE, OTHER ==
[~2019-12-10 09:54] MED LIST: Iopamidol 370 76% 100 ML VIAL ONE
[2019-12-10] MEDS ORDERED: Sodium Chloride 0.9% 1,000 ML ONE (10:36)
[2019-12-10] MEDS ORDERED: methylPREDNISolone Sod Succ/PF 125 MG/2 ML VIAL ONE (10:37)
--- NOTE | 2019-12-10 10:53 | RAD ---
XR Chest 1 View Portable HISTORY: Dyspnea COMPARISON: 07/13/2017 FINDINGS: The heart is enlarged. There is pulmonary vascular congestion. No lobar consolidation, pneu mothoraces or large effusions are seen. There may be a mild infiltrate in the right upper lobe.
[2019-12-10 10:56] LABS: #Lymphocytes 0.8 thou/uL (1.20-3.40); #Monocytes 0.6 thou/uL (0.11-0.59); #Neutrophils 16.5 thou/uL (1.40-6.50); %Basophils 0.2 % (0.0-1.0); %Eosinophils 0.1 % (0.0-10.0); %Lymphocytes 4.4 % (21.0-51.0); %Monocytes 3.2 % (0.0-10.0); %Neutrophils 92.2 % (42.0-75.0); Hemoglobin 12.8 g/dL (12.0-16.0); Mean Corpuscular HGB CONC 29.9 g/dL (32.0-36.0); Mean Corpuscular Hemoglobin 28.9 pg (27.0-31.0); Mean Corpuscular Volume 96.6 fL (78.0-98.0); Mean Platelet Volume 7.3 fL (7.4-10.4); Platelet Count 233 thou/uL (130-400); RBC Distribution Width 13.6 % (11.5-14.5); Red Blood Cell (RBC) Count 4.45 mill/uL (4.20-5.40); White Blood Cell (WBC) Count 17.8 thou/uL (4.8-10.8)
[2019-12-10 11:08] LABS: INR-International Normal Ratio 1.2; Prothrombin Time 15.1 sec (12.0-14.7)
[2019-12-10] MEDS ORDERED: cefTRIAXone\\ROCEPHIN 1 GM VIAL ONE (11:08)
[2019-12-10 11:17] LABS: CKMB 2.9 ng/mL (0-6.6)
[2019-12-10 11:32] LABS: D-Dimer Test 3.59 *mcg/mL (0.27-0.43)
[2019-12-10 11:34] LABS: ALT (SGPT) 15 U/L (8-55); AST (SGOT) 14 U/L (5-34); Alkaline Phosphatase 116 U/L (40-110); Anion Gap 19 mmol/L (10-20); BUN (Urea Nitrogen) 21 mg/dL (9.8-20.1); Calc. Creatinine Clearance 0 mL/min (70-130); Calcium 8.8 mg/dL (7.8-10.44); Carbon Dioxide 19 mmol/L (23-31); Chloride 103 mmol/L (98-107); Estimated GFR-MDRD 46; Globulin 4.5 g/dL (2.4-3.5); Glucose 214 mg/dL (83-110); Potassium 4.4 mmol/L (3.5-5.1); Protein, Total 7.5 g/dL (6.0-8.3); Sodium 137 mmol/L (136-145)
--- NOTE | 2019-12-10 12:27 | CT ---
EXAM: CTA of the chest HISTORY: Shortness of breath COMPARISON: None TECHNIQUE: Multiple contiguous axial images were obtained a CTA of the chest with contrast per pulmon vicente embolism protocol. 3-D oblique MIP reformats and direct coronal reformats were performed. FINDINGS: HEART: Normal in size without focal cardiac abnormality. PULMONARY ARTERIES: Normal in caliber without filling defects to suggest pulmonary emboli. MEDIASTINUM: No hilar or mediastinal lymphadenopathy. LUNGS: Multifocal peripheral opacities are seen consistent with Covid pneumonia. PLEURAL SPACE: No pleural effusion or pneumothorax. CHEST WALL SOFT TISSUES: Unremarkable VISUALIZED OSSEOUS STRUCTURES: Degenerative changes are seen in the spine and shoulders. VISUALIZED SUBDIAPHRAGMATIC STRUCTURES: Unremarkable IMPRESSION: 1. No evidence of pulmonary thromboembolism 2. Multifocal opacities in the lungs are consistent with Covid pneumonia
== END 2019-12-10 13:07 | disposition short-term general hospital (02) ==
LOC: NAV ERS 09:54
DX: J18.9 Pneumonia, unspecified organism (principal); E66.9 Obesity, unspecified; J44.9 Chronic obstructive pulmonary disease, unspecified; I11.0 Hypertensive heart disease with heart failure; I50.9 Heart failure, unspecified; I48.91 Unspecified atrial fibrillation; M81.0 Age-related osteoporosis without current pathological fracture; K21.9 Gastro-esophageal reflux disease without esophagitis; E78.5 Hyperlipidemia, unspecified; Z87.891 Personal history of nicotine dependence; Z79.899 Other long term (current) drug therapy; Z20.828 Contact with and (suspected) exposure to other viral communicable diseases
CPT/HCPCS: 71045; 71275; 80053; 82553; 83605; 83880; 84484; 85025; 85379; 85610; 85730; 87040; 93005; 94760; 96361; 96374; 96375; J0696; J2930; J7050; J7620; Q9967